=== PATIENT | female | born 1965 | race Caucasian/White ===

== ENCOUNTER 2018-09-02 14:03 | Inpatient (IN) | payer BC ==
[2018-09-02] MEDS ORDERED: Ondansetron INJ* 2 MG/ML VIAL IV ONE (14:39)
[2018-09-02] MEDS ORDERED: NS 0.9% 1000 ML*IV.FLUID IV ONE (14:39)
[2018-09-02] MEDS ORDERED: Vancomycin(*) 1,000 MG in NS 0.9% 250 ML* 250 ML IVPB ONE (14:40)
[2018-09-02] MEDS ORDERED: Cefepime 2 GM in Dextrose(*) 2 GM/50 ML BAG IV ONE (14:40)
--- OUTSIDE RECORDS SUMMARY | 2018-09-02 14:43 | XMS REPORT ---
:1965 Author Organization [facility] Address [address] [place] [address] Care Team Providers Name Role Phone Addi Fong Unavailable Unavailable PROBLEMS Type Condition ICD9-CM TLR07-LF Onset Condition SNOMED Code Code Code Dates Status Problem Benign N85.01 Active 820991999844778 endometrial hyperplasia Problem Unspecified N83.201 Active 43509788248071353 ovarian cyst, right side Problem Excessive and N92.1 Active 43387820 frequent menstruation with irregular cycle Problem Incomplete N81.2 Active 141677896 uterovaginal prolapse Problem Family history Z80.0 Active 496765557 of malignant neoplasm of digestive organs ALLERGIES No Information ENCOUNTERS Encounter Location Date Diagnosis [facility] [address] [place] [address] Aug, [address] [place], [place] [id number] [facility] [address] [place], Aug, Excessive and frequent [place] [facility] [place] [id number] menstruation with irregular cycle N92.1 ; Benign endometrial hyperplasia N85.01 ; Unspecified ovarian cyst, right side N83.201 and Hypertrophy of uterus N85.2 [facility] 103 Jul, OBGYN [place], [place] [id number] [facility] [address] [place] [address] Jul, Excessive and frequent [address] [place], menstruation with [place] [id number] irregular cycle N92.1 and Benign endometrial hyperplasia N85.01 [facility] 103 Jul, OBGYN [place] [id number] [facility] 103 Jun, OBGYN [place] [id number] [facility] [address] [facility] Jun, Excessive and frequent [address] [place], menstruation with [place] [id number] irregular cycle N92.1 ; Unspecified ovarian cyst, right side N83.201 ; Incomplete uterovaginal prolapse N81.2 ; Benign endometrial hyperplasia N85.01 and Family history of malignant neoplasm of digestive organs Z80.0 [facility] 103 Jun, Unspecified ovarian OBGYN [facility], cyst, right side N83.201 [place] [id number] ; Excessive and frequent menstruation with irregular cycle N92.1 and Abnormal findings on diagnostic imaging of other specified body structures R93.8 [facility] 103 Jun, OBGYN [place] [id number] [facility] [address] [place], Jun, Excessive and frequent [facility] [place] [id number] menstruation with irregular cycle N92.1 [facility] 103 Jun, OBGYN [place], [place] [id number] [place] [facility] [address] [place] [address] Jun, Excessive and frequent [address] [place], menstruation with [place] [id number] irregular cycle N92.1 ; Unspecified ovarian cyst, right side N83.201 ; Incomplete uterovaginal prolapse N81.2 and Family history of malignant neoplasm of digestive organs Z80.0 [facility] 103 May, OBGYN [place], [place] [id number] [facility] 103 May, Excessive and frequent OBGYN [facility], menstruation with [place] [id number] irregular cycle N92.1 ; Unspecified ovarian cyst, right side N83.201 ; Incomplete uterovaginal prolapse N81.2 and Family history of malignant neoplasm of digestive organs Z80.0 [facility] 103 May, OBGYN [facility] [place] [id number] [place] [facility] 103 May, Excessive and frequent OBGYN [facility], menstruation with [place] [id number] irregular cycle N92.1 [place] [facility] 103 May, Excessive and frequent OBGYN [facility], menstruation with [place] [id number] irregular cycle N92.1 [place] [facility] 103 May, Excessive and frequent OBGYN [facility], menstruation with [place] [id number] irregular cycle N92.1 and Unspecified ovarian cyst, right side N83.201 [place] [facility] [address] [facility] Apr, Unspecified ovarian [address] [place], cyst, right side N83.201 [place] [id number] ; Encounter for screening for malignant neoplasm of cervix Z12.4 ; Incomplete uterovaginal prolapse N81.2 ; Family history of malignant neoplasm of digestive organs Z80.0 and Excessive and frequent menstruation with irregular cycle N92.1 IMMUNIZATIONS No Known Immunizations SOCIAL HISTORY Never Assessed REASON FOR REFERRAL FUNCTIONAL STATUS PLAN OF CARE VITAL SIGNS MEDICATIONS Medication Instructions Dosage Frequency Start Date End Date Duration Status ibuprofen 800 orally q 8 hrs 1 tab(s) Aug, Active mg prn 2018 Percocet 5/325 orally every 6 1 tab(s) Aug, Active 325 mg-5 mg hours prn 2018 PROCEDURES Procedure Date Ordered Result Body Site TLH W/T/O UTERUS OVER 250 G Aug 25, 2018 REMOVAL OF OVARIAN CYST(S) Aug 25, 2018 CYSTOSCOPY Aug 25, 2018 RESULTS No Results REASON FOR VISIT TLH/BS/cysto Insurance Providers [facility] Health Member Patient Patient Patient Patient Patient Subscriber Subscriber Subscriber Group Insurance Plan Plan Plan Plan ID Relationship Address Phone Name Date of ID Name Date of No Type Insurance Insurance Insurance Coverage to Subscriber Address Phone Name Dates Excellus [address] Excellus self Ayala [id number] Blue [id number] 89 Blue [place] 7 Cross/Blue [place] Cross/Blue Shield 61590 Shield Excellus [address] Excell[employer] self Ayala [id number] Blue [id number] 89 Blue [place] 2 Cross/Blue [place] Cross[place] Shield 11423 Shield MEDICAL (GENERAL) HISTORY Type Description Date Medical History Fibroids Medical History High Chloesterol Medical History Endometriosis Surgical History Exploratory laparoscopy w/ lysis of adhesions 1992 Surgical History Shoulder surgery Surgical History hysteroscopy, D&C 07/01/18
--- OUTSIDE RECORDS SUMMARY | 2018-09-02 14:43 | XMS REPORT ---
:1965 Author Organization [facility] Address [address] [place] [address] Care Team Providers Name Role Phone Lou Reveles Unavailable Unavailable PROBLEMS Type Condition ICD9-CM [id number] Onset Condition SNOMED Code Code Code Dates Status Problem Benign N85.01 Active 049387191636485 endometrial hyperplasia Problem Unspecified N83.201 Active 52540601735275031 ovarian cyst, right side Problem Excessive and N92.1 Active 74133110 frequent menstruation with irregular cycle Problem Incomplete N81.2 Active 786992827 uterovaginal prolapse Problem Family history Z80.0 Active 457712996 of malignant neoplasm of digestive organs ALLERGIES No Information ENCOUNTERS Encounter Location Date Diagnosis [facility] O[facility] [address] [place] [address] Aug, [address] [place], [place] [id number] [facility] 103 Aug, OBGYN [place], [place] [id number] [facility] [address] [place], Aug, Excessive and frequent Medical [facility] [place] [id number] menstruation with irregular cycle N92.1 ; Benign endometrial hyperplasia N85.01 ; Unspecified ovarian cyst, right side N83.201 and Hypertrophy of uterus N85.2 [facility] 103 Jul, OBGYN [place], [place] [id number] [facility] [address] [place] [address] Jul, Excessive and frequent [address] [place], menstruation with [place] [id number] irregular cycle N92.1 and Benign endometrial hyperplasia N85.01 [facility] 103 Jul, OBGYN [place] [id number] [facility] 103 Jun, OBGYN [place] [id number] [place] [facility] [address] [place] [address] Jun, Excessive and frequent [address] [place], menstruation with [place] [id number] irregular cycle N92.1 ; Unspecified ovarian cyst, right side N83.201 ; Incomplete uterovaginal prolapse N81.2 ; Benign endometrial hyperplasia N85.01 and Family history of malignant neoplasm of digestive organs Z80.0 [facility] 103 Jun, Unspecified ovarian OBGYN [facility], cyst, right side N83.201 [place] [id number] ; Excessive and frequent menstruation with irregular cycle N92.1 and Abnormal findings on diagnostic imaging of other specified body structures R93.8 [facility] 103 Jun, OBGYN [place], [place] [id number] [facility] [address] [place], Jun, Excessive and frequent Medical [facility] [place] [id number] menstruation with irregular cycle N92.1 [facility] 103 Jun, OBGYN [place] [id number] [place] [facility] [address] [place] [address] Jun, Excessive and frequent [address] [place], menstruation with [place] [id number] irregular cycle N92.1 ; Unspecified ovarian cyst, right side N83.201 ; Incomplete uterovaginal prolapse N81.2 and Family history of malignant neoplasm of digestive organs Z80.0 [facility] 103 May, OBGYN [place], [place] [id number] [place] [facility] 103 May, Excessive and frequent OBGYN [facility], menstruation with [place] [id number] irregular cycle N92.1 ; Unspecified ovarian cyst, right side N83.201 ; Incomplete uterovaginal prolapse N81.2 and Family history of malignant neoplasm of digestive organs Z80.0 [place] [facility] 103 May, OBGYN [facility] [id number] [place] [facility] 103 May, Excessive and frequent OBGYN [facility], menstruation with [place] [id number] irregular cycle N92.1 [place] [facility] 103 May, Excessive and frequent OBGYN [facility], menstruation with [place] [id number] irregular cycle N92.1 [place] [facility] 103 May, Excessive and frequent OBGYN [facility], menstruation with [place] [id number] irregular cycle N92.1 and Unspecified ovarian cyst, right side N83.201 [place] [facility] [address] [facility] Apr, Unspecified ovarian [address] [place], cyst, right side N83.201 [place] [id number] ; Encounter for screening for malignant neoplasm of cervix Z12.4 ; Incomplete uterovaginal prolapse N81.2 ; Family history of malignant neoplasm of digestive organs Z80.0 and Excessive and frequent menstruation with irregular cycle N92.1 IMMUNIZATIONS No Known Immunizations SOCIAL HISTORY Never Assessed REASON FOR REFERRAL FUNCTIONAL STATUS PLAN OF CARE VITAL SIGNS MEDICATIONS Unknown Medications PROCEDURES No Known procedures RESULTS No Results REASON FOR VISIT message from call center. Insurance Providers [facility] Member Patient Patient Patient Patient Patient Subscriber Subscriber Subscriber Group Insurance Plan Plan Plan Plan ID Relationship Address Phone Name Date of ID Name Date of No Type Insurance Insurance Insurance Coverage to Subscriber Address Phone Name Dates Excellus [address] Excellus self Ay[place] [id number] Blue [id number] 89 Blue [place] 7 Cross[place] Cross/Blue Shield 26[address] Shield Excellus [address] [employer]us self [place] [id number] Blue [id number] 89 Blue [place] 2 Cross[place] Cross[place]Blue Shield 51215 Shield MEDICAL (GENERAL) HISTORY Type Description Date Medical History Fibroids Medical History High Chloesterol Medical History Endometriosis Surgical History Exploratory laparoscopy w/ lysis of adhesions 1992 Surgical History Shoulder surgery Surgical History hysteroscopy, D&C 07/01/18
--- OUTSIDE RECORDS SUMMARY | 2018-09-02 14:43 | XMS REPORT ---
:1965 Author Organization [facility] Address [address] [place] [address] Care Team Providers Name Role Phone Addi Fong Unavailable Unavailable PROBLEMS Type Condition ICD9-CM NKS84-JV Onset Condition SNOMED Code Code Code Dates Status Problem Benign N85.01 Active 523518233468761 endometrial hyperplasia Problem Unspecified N83.201 Active 85113396711500386 ovarian cyst, right side Problem Excessive and N92.1 Active 43553842 frequent menstruation with irregular cycle Problem Incomplete N81.2 Active 992679628 uterovaginal prolapse Problem Family history Z80.0 Active 416529654 of malignant neoplasm of digestive organs ALLERGIES No Information ENCOUNTERS Encounter Location Date Diagnosis [address] Aug, [address] [place], [place] [id number] [facility] 103 Aug, OBGYN [place] [id number] [facility] 103 Aug, OBGYN [place], [place] [id number] [facility] [address] [place], Aug, Excessive and frequent [facility] [place] [id number] menstruation with irregular cycle N92.1 ; Benign endometrial hyperplasia N85.01 ; Unspecified ovarian cyst, right side N83.201 and Hypertrophy of uterus N85.2 [facility] 103 Jul, OBGYN [place], [place] [id number] [facility] [address] [place] [address] Jul, Excessive and frequent [address] [place], menstruation with [place] [id number] irregular cycle N92.1 and Benign endometrial hyperplasia N85.01 [facility] 103 Jul, OBGYN [place], [place] [id number] [facility] 103 Jun, OBGYN [place], [place] [id number] [facility] [address] [place] [address] Jun, Excessive and frequent [address] [place], menstruation with [place] [id number] irregular cycle N92.1 ; Unspecified ovarian cyst, right side N83.201 ; Incomplete uterovaginal prolapse N81.2 ; Benign endometrial hyperplasia N85.01 and Family history of malignant neoplasm of digestive organs Z80.0 [facility] 103 Jun, Unspecified ovarian OBGYN [facility], cyst, right side N83.201 [place] [id number] ; Excessive and frequent menstruation with irregular cycle N92.1 and Abnormal findings on diagnostic imaging of other specified body structures R93.8 [facility] 103 Jun, OBGYN [place], [place] [id number] [facility] [address] [place], Jun, Excessive and frequent Medical [facility] [place] [id number] menstruation with irregular cycle N92.1 [facility] 103 Jun, OBGYN [place], [place] [id number] [facility] [address] [place] [address] Jun, Excessive and frequent [address] [place], menstruation with [place] [id number] irregular cycle N92.1 ; Unspecified ovarian cyst, right side N83.201 ; Incomplete uterovaginal prolapse N81.2 and Family history of malignant neoplasm of digestive organs Z80.0 [facility] 103 May, OBGYN [place], [place] [id number] [facility] 103 May, Excessive and frequent OBGYN [facility], menstruation with [place] [id number] irregular cycle N92.1 ; Unspecified ovarian cyst, right side N83.201 ; Incomplete uterovaginal prolapse N81.2 and Family history of malignant neoplasm of digestive organs Z80.0 [place] [facility] 103 May, OBGYN [facility] [id number] [place] [facility] 103 May, Excessive and frequent OBGYN [facility], menstruation with [place] [id number] irregular cycle N92.1 [place] [facility] 103 May, Excessive and frequent OBGYN [facility], menstruation with [place] [id number] irregular cycle N92.1 [place] [facility] 103 May, Excessive and frequent OBGYN [facility], menstruation with [place] [id number] irregular cycle N92.1 and Unspecified ovarian cyst, right side N83.201 [place] [facility] [address] [place] [address] Apr, Unspecified ovarian [address] [place], cyst, right side N83.201 [place] [id number] ; Encounter for screening for malignant neoplasm [...] procedures RESULTS No Results REASON FOR VISIT PT concerns Insurance Providers [facility] Health Member Patient Patient Patient Patient Patient Subscriber Subscriber Subscriber Group Insurance Plan Plan Plan Plan ID Relationship Address Phone Name Date of ID Name Date of No Type Insurance Insurance Insurance Coverage to Subscriber Address Phone Name Dates Excell[employer] [address] Excell[employer] self Ayala 1965 [id number] Blue [id number] 89 Blue [place] 7 Cross/Blue [place] Cross/Blue Shield 35745 Shield Excellus [address] Excellus self Ayala [id number] Blue [id number] 89 Blue [place] 2 Cross[place]Blue [place]/Blue Shield 61713 Shield MEDICAL (GENERAL) HISTORY Type Description Date Medical History Fibroids Medical History High Chloesterol Medical History Endometriosis Surgical History Exploratory laparoscopy w/ lysis of adhesions 1992 Surgical History Shoulder surgery Surgical History hysteroscopy, D&C 07/01/18
--- OUTSIDE RECORDS SUMMARY | 2018-09-02 14:44 | XMS REPORT ---
:1965 Author Organization [facility] Address [address] [place] [address] Care Team Providers Name Role Phone Lou Reveles Unavailable Unavailable PROBLEMS Type Condition ICD9-CM LQA03-IQ Onset Condition SNOMED Code Code Code Dates Status Problem Benign N85.01 Active 154685167846216 endometrial hyperplasia Problem Unspecified N83.201 Active 88778213052227407 ovarian cyst, right side Problem Excessive and N92.1 Active 81118563 frequent menstruation with irregular cycle Problem Incomplete N81.2 Active 128930818 uterovaginal prolapse Problem Family history Z80.0 Active 216253656 of malignant neoplasm of digestive organs ALLERGIES Substance Reaction Event Type Date Status penicillin Rash, Edema Drug Allergy Jul, Active cephalexin Vomiting Drug Allergy Jul, Active tetracycline Rash Drug Allergy Jul, Active ENCOUNTERS Encounter Location Date Diagnosis [facility] O[facility] [address] [place] [address] Aug, [address] [place], [place] [id number] [facility] [address] [place], Aug, [facility] [id number] [facility] 103 Jul, OBGYN [place] [id number] [facility] [address] [place] [address] Jul, [address] [place], menstruation with [place] [id number] irregular cycle N92.1 and Benign endometrial hyperplasia N85.01 [facility] 103 Jul, OBGYN [place] [id number] [facility] 103 Jun, OBGYN [place], [place] [id number] [place] [facility] [address] [facility] Jun, Excessive and frequent [address] [place], menstruation with [place] [id number] irregular cycle N92.1 ; Unspecified ovarian cyst, right side N83.201 ; Incomplete uterovaginal prolapse N81.2 ; Benign endometrial hyperplasia N85.01 and Family history of malignant neoplasm of digestive organs Z80.0 [facility] 103 Jun, Unspecified ovarian OBGYN [facility], cyst, right side N83.201 [place] [id number] ; Excessive and frequent menstruation with irregular cycle N92.1 and Abnormal findings on diagnostic imaging of other specified body structures R93.8 [facility] 103 Jun, OBGYN [place] [id number] [facility] [address] [place], Jun, Excessive and frequent Medical [place] [id number] menstruation with irregular cycle N92.1 [facility] 103 Jun, OBGYN [place], [place] [id number] [place] [facility] [address] [facility] Jun, Excessive and frequent [address] [place], menstruation with [place] [id number] irregular cycle N92.1 ; Unspecified ovarian cyst, right side N83.201 ; Incomplete uterovaginal prolapse N81.2 and Family history of malignant neoplasm of digestive organs Z80.0 [facility] 103 May, OBGYN [place], [place] [id number] [facility] 103 May, Excessive and frequent OBGYN [facility], menstruation with [place] [id number] irregular cycle N92.1 ; Unspecified ovarian cyst, right side N83.201 ; Incomplete uterovaginal prolapse N81.2 and Family history of malignant neoplasm of digestive organs Z80.0 [facility] 103 May, OBGYN [place] [id number] [place] [facility] 103 May, Excessive and frequent OBGYN [facility], menstruation with [place] [id number] irregular cycle N92.1 [place] [facility] 103 May, Excessive and frequent OBGYN [facility], menstruation with [place] [id number] irregular cycle N92.1 [place] [facility] 103 May, Excessive and frequent OBGYN [facility], menstruation with [place] [id number] irregular cycle N92.1 and Unspecified ovarian cyst, right side N83.201 [place] [facility] [address] [facility] Apr, Unspecified ovarian [address] [place], cyst, right side N83.201 [place] [id number] ; Encounter for screening for malignant neoplasm of cervix Z12.4 ; Incomplete uterovaginal prolapse N81.2 ; Family history of malignant neoplasm of digestive organs Z80.0 and Excessive and frequent menstruation with irregular cycle N92.1 IMMUNIZATIONS No Known Immunizations SOCIAL HISTORY Never Assessed REASON FOR REFERRAL FUNCTIONAL STATUS PLAN OF CARE Activity Details Follow Up As scheduled pending medical and cardiac clearance Reason: Pending Test URINE CULTURE Pending Test URINALYSIS WITH MICROSCOPIC VITAL SIGNS Height 65 in 2018-08-19 Weight 172 lbs 2018-08-19 BMI 28.62 kg/m2 2018-08-19 Blood pressure systolic 118 mm Hg 2018-08-19 Blood pressure diastolic 80 mm Hg 2018-08-19 MEDICATIONS Medication Instructions Dosage Frequency Start End Date Duration Status Date megestrol 40 mg orally bid 1 12h 30 day(s) Active Vitamin B-12 orally once a Active 1000 mcg week atorvastatin 10 orally once a 1 tab(s) 24h Active mg day PROCEDURES No Known procedures RESULTS No Results REASON FOR VISIT presurgical counseling, Clearance needed by PCP and cardiology, ECHO tomorrow and stress test on Friday Insurance Providers [facility] Health Member Patient Patient Patient Patient Patient Subscriber Subscriber Subscriber Group Insurance Plan Plan Plan Plan ID Relationship Address Phone Name Date of ID Name Date of No Type Insurance Insurance Insurance Coverage to Subscriber Address Phone Name Dates Brandin [phone] Brandin self [facility] [id number] Blue [id number] 89 Blue [place] 2 Cross[place] Cross/Blue Shield [id number] Shield Excell[employer] [phone] Excell[employer] self [place] [id number] Blue [id number] 89 Blue [place] 7 Cross/Blue [place] Cross/Blue Shield [id number] Shield MEDICAL (GENERAL) HISTORY Type Description Date Medical History Fibroids Medical History High Chloesterol Medical History Endometriosis Surgical History Exploratory laparoscopy w/ lysis of adhesions 1992 Surgical History Shoulder surgery Surgical History hysteroscopy, D&C 07/01/18
--- OUTSIDE RECORDS SUMMARY | 2018-09-02 14:44 | XMS REPORT ---
:1965 Author Organization [facility] Address [address] [place] [address] Care Team Providers Name Role Phone Lou Reveles Unavailable Unavailable PROBLEMS Type Condition ICD9-CM [id number] Onset Condition SNOMED Code Code Code Dates Status Problem Benign N85.01 Active 931055410090260 endometrial hyperplasia Problem Unspecified N83.201 Active 41885319202758418 ovarian cyst, right side Problem Excessive and N92.1 Active 20741273 frequent menstruation with irregular cycle Problem Incomplete N81.2 Active 778570931 uterovaginal prolapse Problem Family history Z80.0 Active [id number] of malignant neoplasm of digestive organs ALLERGIES No Information ENCOUNTERS Encounter Location Date Diagnosis [facility] [address] [place] [address] Aug, [address] [place], [place] [id number] [facility] [address] [place], Aug, [facility] [id number] [facility] [address] Jul, OBGYN [place], [place] [id number] [facility] [address] [facility] Jul, Excessive and frequent [address] [place], menstruation with [place] [id number] irregular cycle N92.1 and Benign endometrial hyperplasia N85.01 [facility] [address] Jul, OBGYN [place], [place] [id number] [facility] [address] Jun, OBGYN [place], [place] [id number] [place] [facility] [address] [facility] Jun, Excessive and frequent [address] [place], menstruation [place] [id number] irregular cycle N92.1 ; Unspecified ovarian cyst, right side N83.201 ; Incomplete uterovaginal prolapse N81.2 ; Benign endometrial hyperplasia N85.01 and Family history of malignant neoplasm of digestive organs Z80.0 [facility] [address] Jun, Unspecified ovarian OBGYN [facility], cyst, right side N83.201 [place] [id number] ; Excessive and frequent menstruation with irregular cycle N92.1 and Abnormal findings on diagnostic imaging of other specified body structures R93.8 [facility] [address] Jun, OBGYN [place], [place] [id number] [facility] [address] [place], Jun, Excessive and frequent [facility] [place] [id number] menstruation with irregular cycle N92.1 [facility] 103 Jun, OBGYN [place] [id number] [place] [facility] [address] [facility] Jun, Excessive and frequent [address] [place], menstruation with [place] [id number] irregular cycle N92.1 ; Unspecified ovarian cyst, right side N83.201 ; Incomplete uterovaginal prolapse N81.2 and Family history of malignant neoplasm of digestive organs Z80.0 [facility] 103 May, OBGYN [place], [place] [id number] [facility] 103 May, Excessive and frequent OBGYN [facility], menstruation with [place] [id number] irregular cycle N92.1 ; Unspecified ovarian cyst, right side N83.201 ; Incomplete uterovaginal prolapse N81.2 and Family history of malignant neoplasm of digestive organs Z80.0 [facility] 103 May, OBGYN [place] [id number] [facility] 103 May, Excessive and frequent OBGYN [facility], menstruation with [place] [id number] irregular cycle N92.1 [facility] 103 May, Excessive and frequent OBGYN [facility], menstruation with [place] [id number] irregular cycle N92.1 [place] [facility] 103 May, Excessive and frequent OBGYN [facility], menstruation with [place] [id number] irregular cycle N92.1 and Unspecified ovarian cyst, right side N83.201 [place] [facility] [address] [facility] Apr, Unspecified ovarian [address] [place], cyst, right side N83.201 [place] [id number] ; Encounter for screening for malignant neoplasm [...] procedures RESULTS No Results REASON FOR VISIT PCP clearance Insurance Providers [facility] Member Patient Patient Patient Patient Patient Subscriber Subscriber Subscriber Group Insurance Plan Plan Plan Plan ID Relationship Address Phone Name Date of ID Name Date of No Type Insurance Insurance Insurance Coverage to Subscriber Address Phone Name Dates [employer] [address] [employer] self Ayala [id number] Blue [id number] 89 [address] [place] 2 [place] Cross/Blue Shield [id number] Shield [employer] [address] [employer] self [place] [id number] Blue [id number] 89 [place] 7 [place] [id number] Shield MEDICAL (GENERAL) HISTORY Type Description Date Medical History Fibroids Medical History High Chloesterol Medical History Endometriosis Surgical History Exploratory laparoscopy w/ lysis of adhesions 1992 Surgical History Shoulder surgery Surgical History hysteroscopy, D&C 07/01/18
--- OUTSIDE RECORDS SUMMARY | 2018-09-02 14:44 | XMS REPORT ---
:1965 Author Organization [facility] Address [address] [place] [address] Care Team Providers Name Role Phone Addi Fong Unavailable Unavailable PROBLEMS Type Condition ICD9-CM DFT22-QF Onset Condition SNOMED Code Code Code Dates Status Problem Benign N85.01 Active 492308177404807 endometrial hyperplasia Problem Unspecified N83.201 Active 51828216058723352 ovarian cyst, right side Problem Excessive and N92.1 Active 16957668 frequent menstruation with irregular cycle Problem Incomplete N81.2 Active 719238938 uterovaginal prolapse Problem Family history Z80.0 Active 509509634 of malignant neoplasm of digestive organs ALLERGIES No Information ENCOUNTERS Encounter Location Date Diagnosis [facility] [address] [facility] Aug, [address] [place], [place] [id number] [facility] [address] [place], Aug, [facility] [id number] [facility] [address] [facility] Jul, [address] [place], [place] [id number] [facility] 103 Jul, OBGYN [place] [id number] [facility] 103 Jun, OBGYN [place] [id number] [facility] [address] [facility] Jun, Excessive and frequent [address] [place], menstruation with [place] [id number] irregular cycle N92.1 ; Unspecified ovarian cyst, right side N83.201 ; Incomplete uterovaginal prolapse N81.2 ; Benign endometrial hyperplasia N85.01 and Family history of malignant neoplasm of digestive organs Z80.0 [place] [facility] [address] Jun, Unspecified ovarian OBGYN [facility], cyst, right side N83.201 [place] [id number] ; Excessive and frequent menstruation with irregular cycle N92.1 and Abnormal findings on diagnostic imaging of other specified body structures R93.[address] [facility] [address] Jun, OBGYN [place], [place] [id number] [facility] [address] [place], Jun, Excessive and frequent [facility] [place] [id number] menstruation with irregular cycle N92.[address] [facility] [address] Jun, OBGYN [place] [id number] [place] [facility] [address] [facility] Jun, Excessive and frequent [address] [place], menstruation with [place] [id number] irregular cycle N92.1 ; Unspecified ovarian cyst, right side N83.201 ; Incomplete uterovaginal prolapse N81.2 and Family history of malignant neoplasm of digestive organs Z80.0 [facility] [address] May, OBGYN [place], [place] [id number] [facility] [address] May, Excessive and frequent OBGYN [facility], menstruation with [place] [id number] irregular cycle N92.1 ; Unspecified ovarian cyst, right side N83.201 ; Incomplete uterovaginal prolapse N81.2 and Family history of malignant neoplasm of digestive organs Z80.0 [place] [facility] 103 May, OBGYN [place], [place] [id number] [place] [facility] 103 May, Excessive and frequent OBGYN [facility], menstruation with [place] [id number] irregular cycle N92.1 [place] [facility] 103 May, Excessive and frequent OBGYN [facility], menstruation [place] [id number] irregular cycle N92.1 [facility] 103 May, Excessive and frequent OBGYN [facility], menstruation with [place] [id number] irregular cycle N92.1 and Unspecified ovarian cyst, right side N83.201 [place] [facility] [address] [facility] Apr, Unspecified ovarian [address] [place], cyst, right side N83.201 [place] [id number] ; Encounter for screening for malignant neoplasm [...] procedures RESULTS No Results REASON FOR VISIT pt called with update - LMTCB 08/13/18 Insurance Providers [facility] Member Patient Patient Patient Patient Patient Subscriber Subscriber Subscriber Group Insurance Plan Plan Plan Plan ID Relationship Address Phone Name Date of ID Name Date of No Type Insurance Insurance Insurance Coverage to Subscriber Address Phone Name Dates [employer] [phone] [employer] self Ayala 1965 [id number] Blue [id number] 89 [place] 7 [place]/Blue Shield [id number] Shield [employer] [phone] [employer] self Ay[place] [id number] Blue [id number] 89 [place] 2 [place] Shield [id number] Shield MEDICAL (GENERAL) HISTORY Type Description Date Medical History Fibroids Medical History High Chloesterol Medical History Endometriosis Surgical History Exploratory laparoscopy w/ lysis of adhesions 1992 Surgical History Shoulder surgery Surgical History hysteroscopy, D&C 07/01/18
--- OUTSIDE RECORDS SUMMARY | 2018-09-02 14:44 | XMS REPORT | Continuity of Care Document ---
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 [address] Group Name: DELBERT Loo [address] PayID: [id number] Expires: 2016 Policy Number: [id number] Laurenus BUNNY Klein Group Number: [id number] [address] Group Name: BC/BS of [place]ERT Shine [address] PayID: [id number] Effective: 2017 Policy Number: [id number] [employer](Open Choice) Veronika Klein Expires: 2018 PayID: [id number] [address] ANTWAN Santiago [address] Expires: 2017 Policy Number: [id number] Lauren BUNNY Klein Group Number: [id number] [address] Group Name: DELBERT Rodas [address]2017 PayID: [id number] Effective: 2017 Policy Number: [id number] Brandin HOLLIS Veronika Klein Group Number: 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 Tobacco Use Start: Unknown Former Cigarette Smoker smoked for 6-7 years End: Unknown when she was younger ETOH Use Rarely consumes alcohol Recreational Drug Use Denies Drug Use Tobacco Use Start: Unknown Patient is a former End: Unknown smoker Enjoy Exercising Enjoys exercising she is currently limited by her shoulder pain, tries to walk some but has pain Allergies, Adverse Reactions, Alerts Date Description Reaction Status Severity Comments 09/27/2008 PCN Active 09/27/2008 Tetracyclin Active rash 01/09/2018 Paroxetine Active throat closing Medications Medication Date Status Form Strength Qnty SIG Indications Ordering Provider Hydrocortisone 08/03/ Active Cream 2.5% 20gm apply 1 R21 [facility] 2017 application Shortle, topically to [employer]ITTER affected area 2 times per day Atorvastatin 10/02/ Active Tablets 10mg 90tab take one E78.2 Shawnti Calcium 2015 s tablet daily R. Rai, at bedtime. [facility] Alprazolam 09/20/ Active Tablets 0.25mg 10ten 1 by mouth F41.9 Shawnti 2014 30 minutes R. Rai, prior to air [facility] THERAP[facility] travel if needed Vitamin B12 / Active Tablets 1000mcg 1 by mouth Unknown 0000 ER every day- sublingual- for vitamin b12 deficiency Meloxicam / Active Tablets take 1 Unknown 0000 tablet by mouth twice daily with food for back pain Progesterone / Active Cream Unknown 0000 Permethrin 06/19/ Hx Cream 5% 60gm apply cream B86 Clarence 2017 [facility] MD sharon 2017 surface. leave on for 8-14 hours then wash off. Permethrin 10/09/ Hx Cream 5% 60gm apply to B86 Gaurangjenniei 2017 - body from Naomi Atwood, 02/19/ the neck [facility] 2017 down, leave on for 8 hours then rinse off Hydroxyzine HCL 10/09/ Hx Tablets 25mg 30tab 1 by mouth B86 True 2016 - s four times a Naomi Atwood, 02/19/ day as [facility] 2018 needed for itching Fluoxetine HCL 09/17/ Hx Capsules 10mg 30cap 1 by mouth F43.0 True 2015 - s every Naomi Atwood, 09/15/ morning [facility] 2016 Tizanidine HCL 05/29/ Hx Tablets 2mg 30tab take 1 847.2 Danai 2014 - s tablet by Naomi Atwood, 09/17/ mouth three [facility] 2016 times daily as needed for muscle spasm Tramadol HCL 05/29/ Hx Tablets 50mg 40tab 1 by mouth 847.2 Delfinnti 2014 - s q4-6hr as Naomi Atwood, 09/17/ needed [facility] 2015 severe pain No Active 09/20/ Hx Unknown Medications 2013 - 2013 No Active 07/29/ Hx Unknown Medications 2012 - 2012 Nupercainal Hx Ointment 1% True 2012 - Naomi Atwood, 07/29/ [facility] 2012 Lidocaine/Priloc Hx Cream 2.5-2.5% 25gm apply a pea True gupta 2013 - sized amount Naomi Atwood, 09/20/ to the [facility] 2013 affected area tid prn Benzonatate 11/26/ Hx Capsules 100mg 30cap 1 po tid prn 465.9 True 2012 - s cough Naomi Atwood, [facility] 2012 Benadryl Allergy 08/20/ Hx Tablets 25mg QHS prn True 2011 - Naomi Atwood, [facility] 2013 Omeprazole 08/20/ Hx Capsules 20mg 1 po qd-ac True 2011 - prn for Naomi Atwood, 07/29/ stomach acid [facility] 2012 Meclizine HCL 12/28/ Hx Tablets 12.5mg 30tab 1-2 tabs up 386.11 True 2010 - s to tid for Naomi Atwood, 08/20/ vertigo [facility] 2011 Immunizations CPT Code Status Date Vaccine Lot # [id number] Given 08/21/2018 Influenza Virus Vaccine, Quadrivalent, 3 Yr > [id number] Quad, Preserv Free 28868 Given 09/15/2017 Influenza Virus Vaccine, Quadrivalent, 3 Yr > [id number] Quad, Preserv Free 35247 Given 09/17/2016 Influenza Virus Vaccine, Quadrivalent, 3 Yr > [id number] Quad, Preserv Free 00154 Given 10/02/2015 Influenza Virus Vaccine, Quadrivalent, 3 Yr > [id number] Quad, Preserv Free 92465 Given 09/20/2014 Influenza Virus Vaccine, Quadrivalent, 3 Yr > [id number] Quad, Preserv Free 17788 Given 07/29/2013 Td Age 7 to adult (Tenivac, Decavac, Mass [id number] Biologics) 96555 Given 08/20/2012 Influenza Vaccine-Preservative Free 3 Yrs And [id number] Above 12376 Given 09/27/2008 Influenza Virus Vaccine, 3 Yrs And Above [id number] Vital Signs Date Vital Result Comment 08/21/2018 3:51pm Weight 174.00 lb Weight 78.926 kg BP Systolic 110 mmHg BP Diastolic 68 mmHg Heart Rate 102 /min Body Temperature 98.9 F Respiratory Rate 16 /min 08/03/2018 9:21am Weight 175.00 lb Weight 79.380 kg BP Systolic 111 mmHg BP Diastolic 68 mmHg Heart Rate 80 /min Body Temperature 99.4 F Respiratory Rate 12 /min Height 63.5 inches 5'3.50" BMI (Body Mass Index) 30.5 kg/m2 06/19/2018 11:19am Weight 178.00 lb Weight 80.741 kg BP Systolic 122 mmHg BP Diastolic 82 mmHg Heart Rate 84 /min Body Temperature 98.4 F Respiratory Rate 16 /min O2 % BldC Oximetry 97 % 04/28/2018 8:07am Weight 176.00 lb Weight 79.834 kg BP Systolic 122 mmHg BP Diastolic 78 mmHg Heart Rate 94 /min Body Temperature 98.3 F Respiratory Rate 14 /min 03/16/2018 4:32pm Weight 179.00 lb Weight 81.194 kg BP Systolic 110 mmHg BP Diastolic 80 mmHg Heart Rate 72 /min Body Temperature 98.1 F Respiratory Rate 16 /min O2 % BldC Oximetry 98 % 02/19/2018 4:19pm Weight 179.00 lb Weight 81.194 kg BP Systolic 116 mmHg BP Diastolic 66 mmHg Heart Rate 80 /min Respiratory Rate 16 /min O2 % BldC Oximetry 98 % 10/09/2017 9:57am BP Systolic 96 mmHg BP Diastolic 66 mmHg Heart Rate 81 /min Body Temperature 97.8 F Respiratory Rate 16 /min O2 % BldC Oximetry 98 % 09/15/2017 8:59am Weight 172.00 lb Weight 78.019 kg BP Systolic 110 mmHg BP Diastolic 72 mmHg Heart Rate 68 /min Body Temperature 96.7 F 09/17/2016 8:51am Weight 164.00 lb Weight 74.390 kg BP Systolic 108 mmHg BP Diastolic 72 mmHg Heart Rate 66 /min Body Temperature 98.6 F Respiratory Rate 66 /min Height 63.25 inches 5'3.25" BMI (Body Mass Index) 28.8 kg/m2 Last Menstrual Period [id number] 10/02/2015 11:21am Weight 162.00 lb Weight 73.483 kg BP Systolic 110 mmHg BP Diastolic 62 mmHg Heart Rate 80 /min Height 64 inches 5'4" BMI (Body Mass Index) 27.8 kg/m2 09/09/2015 9:56am Weight 158.00 lb Weight 71.669 kg BP Systolic 108 mmHg BP Diastolic 64 mmHg Heart Rate 97 /min Body Temperature 98.3 F O2 % BldC Oximetry 98 % 05/29/2015 10:31am Weight 158.00 lb Weight 71.669 kg BP Systolic 110 mmHg BP Diastolic 64 mmHg Heart Rate 72 /min 09/20/2014 8:43am Weight 157.00 lb Weight 71.215 kg BP Systolic 106 mmHg BP Diastolic 64 mmHg Heart Rate 88 /min Height 64 inches 5'4" BMI (Body Mass Index) 26.9 kg/m2 Last Menstrual Period [id number] 07/29/2013 8:52am Weight 156.00 lb Weight 70.762 kg BP Systolic 90 mmHg BP Diastolic 68 mmHg Heart Rate 72 /min Height 63 inches 5'3" BMI (Body Mass Index) 27.6 kg/m2 Last Menstrual Period [id number] 05/21/2013 11:53am Weight 155.00 lb Weight 70.308 kg BP Systolic 92 mmHg BP Diastolic 64 mmHg Heart Rate 88 /min Body Temperature 98.8 F 11/26/2012 11:10am Weight 148.00 lb Weight 67.133 kg BP Systolic 102 mmHg BP Diastolic 64 mmHg Heart Rate 88 /min Body Temperature 97.7 F Last Menstrual Period 0 O2 % BldC Oximetry 98 % 09/08/2012 2:29pm Weight 159.00 lb Weight 72.122 kg BP Systolic 102 mmHg BP Diastolic 62 mmHg Heart Rate 72 /min 08/20/2012 9:10am Weight 149.00 lb Weight 67.586 kg BP Systolic 110 mmHg BP Diastolic 60 mmHg Heart Rate 92 /min Height 64 inches 5'4" BMI (Body Mass Index) 25.6 kg/m2 Last Menstrual Period [id number] 12/28/2010 8:03am Weight 155.00 lb Weight 70.308 kg BP Systolic 100 mmHg BP Diastolic 64 mmHg Heart Rate 76 /min Body Temperature 98.8 F Height 64.5 inches 5'4.50" BMI (Body Mass Index) 26.2 kg/m2 Last Menstrual Period [id number] 09/27/2008 7:49am Weight 145.00 lb Weight 65.772 kg BP Systolic 110 mmHg BP Diastolic 70 mmHg Heart Rate 92 /min Height 63.75 inches 5'3.75" BMI (Body Mass Index) 25.1 kg/m2 Last Menstrual Period [id number] Results Test Date Facility Test Result H/L Range Note CBC Auto Diff 08/03/2018 [facility] White Blood 8.4 10^3/uL 3.5-10.8 [phone] Count Red Blood Count 4.30 10^6/uL 4.00-5.40 Hemoglobin 11.7 g/dL Low 12.0-16.0 Hematocrit 36 % 35-47 Mean Corpuscular Volume 84 fL 80-97 Mean Corpuscular Hemoglobin 27 pg 27-31 Mean Corpuscular HGB Conc 33 g/dL 31-36 Red Cell Distribution Width 14 % 10.5-15 Platelet Count 304 10^3/uL 150-450 Mean Platelet Volume 8.2 um3 7.4-10.4 Abs Neutrophils 6.0 10^3/uL 1.5-7.7 Abs Lymphocytes 1.8 10^3/uL 1.0-4.8 Abs Monocytes 0.5 10^3/uL 0-0.8 Abs Eosinophils 0.1 10^3/uL 0-0.6 Abs Basophils 0 10^3/uL 0-0.2 Abs Nucleated RBC 0 10^3/uL Granulocyte % 70.6 % 38-83 Lymphocyte % 21.9 % Low 25-47 Monocyte % 6.4 % 0-7 Eosinophil % 0.8 % 0-6 Basophil % 0.3 % 0-2 Nucleated Red Blood Cells % 0 Comp Metabolic Panel 08/03/2018 [facility] Sodium 140 mmol/L 135-145 [phone] Potassium 4.4 mmol/L 3.5-5.0 Chloride 108 mmol/L 101-111 Co2 Carbon Dioxide 26 mmol/L 22-32 Anion Gap 6 mmol/L 2-11 Glucose 93 mg/dL 70-100 Blood Urea Nitrogen 15 mg/dL 6-24 Creatinine 0.69 mg/dL 0.51-0.95 BUN/Creatinine Ratio 21.7 High 8-20 Calcium 9.6 mg/dL 8.6-10.3 Total Protein 7.1 g/dL 6.4-8.9 Albumin 4.5 g/dL 3.2-5.2 Globulin 2.6 g/dL 2-4 Albumin/Globulin Ratio 1.7 1-3 Total Bilirubin 0.50 mg/dL 0.2-1.0 Alkaline Phosphatase 65 U/L 34-104 Alt 16 U/L 7-52 Ast 16 U/L 13-39 Egfr Non- 89.0 >60 Egfr 107.7 >60 1 CBC Auto Diff 04/28/2018 [facility] White Blood 6.7 10^3/uL 3.5-10.8 [phone] Count Red Blood Count 4.34 10^6/uL 4.0-5.4 Hemoglobin 12.3 g/dL 12.0-16.0 Hematocrit 38 % 35-47 Mean Corpuscular Volume 87 fL 80-97 Mean Corpuscular Hemoglobin 28 pg 27-31 Mean Corpuscular HGB Conc 33 g/dL 31-36 Red Cell Distribution Width 15 % 10.5-15 Platelet Count 288 10^3/uL 150-450 Mean Platelet Volume 8.3 um3 7.4-10.4 Abs Neutrophils 4.5 10^3/uL 1.5-7.7 Abs Lymphocytes 1.7 10^3/uL 1.0-4.8 Abs Monocytes 0.4 10^3/uL 0-0.8 Abs Eosinophils 0.1 10^3/uL 0-0.6 Abs Basophils 0 10^3/uL 0-0.2 Abs Nucleated RBC 0 10^3/uL Granulocyte % 67.4 % 38-83 Lymphocyte % 25.2 % 25-47 Monocyte % 6.0 % 0-7 Eosinophil % 1.0 % 0-6 Basophil % 0.4 % 0-2 Nucleated Red Blood Cells % 0.1 Comp Metabolic Panel 04/28/2018 [facility] Sodium 141 mmol/L 139-145 [phone] Potassium 4.4 mmol/L 3.5-5.0 Chloride 105 mmol/L 101-111 Co2 Carbon Dioxide 30 mmol/L 22-32 Anion Gap 6 mmol/L 2-11 Glucose 95 mg/dL 70-100 Blood Urea Nitrogen 12 mg/dL 6-24 Creatinine 0.70 mg/dL 0.51-0.95 BUN/Creatinine Ratio 17.1 8-20 Calcium 9.0 mg/dL 8.6-10.3 Total Protein 6.7 g/dL 6.4-8.9 Albumin 4.3 g/dL 3.2-5.2 Globulin 2.4 g/dL 2-4 Albumin/Globulin Ratio 1.8 1-3 Total Bilirubin 0.40 mg/dL 0.2-1.0 Alkaline Phosphatase 74 U/L 34-104 Alt 18 U/L 7-52 Ast 18 U/L 13-39 Egfr Non- 87.9 >60 Egfr 113.0 >60 2 Laboratory test 04/28/2018 [facility] HCG < 0.60 mIU/mL 3 finding [phone] TSH (Thyroid Stim Horm) 1.56 mcIU/mL 0.34-5.60 4 Prolactin 6.0 ng/mL 1.0-25.0 5 FSH (Follicle Stim Hormone) 21.2 mIU/mL 6 LH (Lutenizing Hormone) 5.3 mcIU/mL 7 Iron & Iron Binding 04/28/2018 [facility] Iron 61 g /dL 50-212 Capacity [phone] Unsaturated Iron Binding 485 g/dL Total Iron Binding Capacity 546 g/dL High 250-450 Transferrin 390 mg/dL High 203-362 % Iron Saturation 11 % Low 15-55 Laboratory test 04/28/2018 [facility] Ferritin 11.5 ng/mL 11-307 8 finding [phone] Order 09/15/2017 In Office EKG <pending> Comp Metabolic 09/15/2017 [facility] Sodium 138 mmol/ L 133-145 9 Panel [phone] Potassium 3.9 mmol/L 3.5-5.0 Chloride 107 mmol/L 101-111 Co2 Carbon Dioxide 27 mmol/L 22-32 Anion Gap 4 mmol/L 2-11 Glucose 97 mg/dL 70-100 Blood Urea Nitrogen 10 mg/dL 6-24 Creatinine 0.67 mg/dL 0.51-0.95 BUN/Creatinine Ratio 14.9 8-20 Calcium 8.7 mg/dL 8.6-10.3 Total Protein 6.4 g/dL 6.4-8.9 Albumin 4.0 g/dL 3.2-5.2 Globulin 2.4 g/dL 2-4 Albumin/Globulin Ratio 1.7 1-3 Total Bilirubin 0.50 mg/dL 0.2-1.0 Alkaline Phosphatase 54 U/L 34-104 Alt 12 U/L 7-52 Ast 15 U/L 13-39 Egfr Non- 92.4 >60 Egfr 118.9 >60 10 CBC Auto Diff 09/15/2017 [facility] White Blood 6.9 10^3/uL 3.5-10.8 [phone] Count Red Blood Count 4.24 10^6/uL 4.0-5.4 Hemoglobin 11.8 g/dL Low 12.0-16.0 Hematocrit 36 % 35-47 Mean Corpuscular Volume 86 fL 80-97 Mean Corpuscular Hemoglobin 28 pg 27-31 Mean Corpuscular HGB Conc 33 g/dL 31-36 Red Cell Distribution Width 14 % 10.5-15 Platelet Count 278 10^3/uL 150-450 Mean Platelet Volume 8 um3 7.4-10.4 Abs Neutrophils 4.6 10^3/uL 1.5-7.7 Abs Lymphocytes 1.8 10^3/uL 1.0-4.8 Abs Monocytes 0.4 10^3/uL 0-0.8 Abs Eosinophils 0.1 10^3/uL 0-0.6 Abs Basophils 0 10^3/uL 0-0.2 Abs Nucleated RBC 0.01 10^3/uL Granulocyte % 66.1 % 38-83 Lymphocyte % 25.8 % 25-47 Monocyte % 6.2 % 1-9 Eosinophil % 1.5 % 0-6 Basophil % 0.4 % 0-2 Nucleated Red Blood Cells % 0.1 Laboratory 09/15/2017 [facility] Hepatitis C Nonreactive Nonreactive 11 test finding [phone] Antibody Lipid Profile 09/15/2017 [facility] Triglycerides 89 mg/dL 12 (Trig/Chol/HD [phone] L) Cholesterol 170 mg/dL 13 HDL Cholesterol 47.4 mg/dL 14 LDL Cholesterol 105 mg/dL 15 Laboratory test 09/15/2017 [facility] TSH (Thyroid 0.90 0.34-5.60 16 finding [phone] Stimulating mcIU/mL Horm) Laboratory test 01/05/2016 [facility] Surgical SEE RESULT 17 finding [phone] Pathology BELOW Statin 12/21/2015 [facility] Ast (Sgot) 17 U/L 13- 39 [phone] Alt (SGPT) 17 U/L 7-52 Lipid Profile 12/21/2015 [facility] Triglycerides 116 mg/dL 18 (Trig/Chol/HDL) [phone] Cholesterol 154 mg/dL 19 HDL Cholesterol 43.4 mg/dL 20 LDL Cholesterol 87 mg/dL 21 Laboratory test 12/21/2015 [facility] Hemoglobin A1c 5.3 % Less than 22 finding [phone] (Glyco HGB) 6.0 Urine DIP 10/02/2015 In House Lab Specific 1.000 Low 1.01-1.02 (607)- - [place] Urine pH 8.0 High 5-6 Leukocytes NEG Neg Urine Nitrites NEG Neg Total Protein, Urine NEG Neg Urine Glucose NEG Norm Urine Ketones NEG Neg Urobilinogen NEG Norm Urine Bilirubin NEG Neg Urine Blood NEG Neg CBC No Diff 12/22/2014 [facility] White Blood 7.4 10^ 3/uL 4.8-10.8 [phone] Count Red Blood Count 4.42 10^6/uL 4.0-5.4 Hemoglobin 12.7 g/dL 12.0-16.0 Hematocrit 39 % 35-47 Mean Corpuscular Volume 89 fL 80-97 Mean Corpuscular Hemoglobin 29 pg 27-31 Mean Corpuscular HGB Conc 32 g/dL 31-36 Red Cell Distribution Width 14 % 10.5-15 Platelet Count 280 10^3/uL 150-450 Mean Platelet Volume 8 um3 7.4-10.4 Comp Metabolic Panel 12/22/2014 [facility] Sodium 136 mmol/L 133-145 [phone] Potassium 4.2 mmol/L 3.5-5.0 Chloride 101 mmol/L 101-111 Co2 Carbon Dioxide 31 mmol/L 22-32 Anion Gap 4 mmol/L 2-11 Glucose 88 mg/dL 70-100 Blood Urea Nitrogen 11 mg/dL 6-24 Creatinine 0.68 mg/dL 0.51-0.95 BUN/Creatinine Ratio 16.2 8-20 Calcium 9.2 mg/dL 8.6-10.3 Total Protein 6.3 g/dL Low 6.4-8.9 Albumin 4.2 g/dL 3.2-5.2 Globulin 2.1 g/dL 2-4 Albumin/Globulin Ratio 2.0 1-3 Total Bilirubin 0.40 mg/dL 0.2-1.0 Alkaline Phosphatase 57 U/L 34-104 Alt 15 U/L 7-52 Ast 15 U/L 13-39 Egfr Non- 92.0 >60 Egfr 118.3 >60 23 Laboratory test 12/22/2014 [facility] TSH (Thyroid 1.60 0.34-5.60 finding [phone] Stimulating Horm) IU/mL Lipid Profile 12/22/2014 [facility] Triglycerides 221 mg/dL 24 (Trig/Chol/HDL) [phone] Cholesterol 243 mg/dL 25 HDL Cholesterol 44.0 mg/dL 26 LDL Cholesterol 155 mg/dL 27 Laboratory test 09/20/2014 [facility] Cytology RUN DATE: finding [phone] 09/21/ <SEE NOTE> HPV High Risk 09/20/2014 [facility] Human See Comment 29 [phone] Papillomavirus Source HPV High Risk Type 16, PCR Negative Negative HPV High Risk Type 18, PCR Negative Negative HPV Other Risk types Negative Negative 30 Urine DIP 09/20/2014 In House Lab Specific [place] 1.005 Low 1.01-1.02 (607)- - Urine pH 8 High 5-6 Leukocytes + Neg Urine Nitrites NEG Neg Total Protein, Urine NEG Neg Urine Glucose NORM Norm Urine Ketones NEG Neg Urobilinogen NORM Norm Urine Bilirubin NEG Neg Urine Blood NEG Neg CBC No Diff 07/29/2013 [facility] White Blood 6.8 10^ 3/uL 4.8-10.8 [phone] Count Red Blood Count 4.36 10^6/uL 4.0-5.4 Hemoglobin 12.5 g/dL 12.0-16.0 Hematocrit 39 % 35-47 Mean Corpuscular Volume 89 fL 80-97 Mean Corpuscular Hemoglobin 29 pg 27-31 Mean Corpuscular HGB Conc 32 g/dL 31-36 Red Cell Distribution Width 14 % 10.5-15 Platelet Count 277 10^3/uL 150-450 Mean Platelet Volume 8 um3 7.4-10.4 Comp Metabolic Panel 07/29/2013 [facility] Sodium 136 mmol/L 133-145 [phone] Potassium 4.1 mmol/L 3.5-5.0 Chloride 103 mmol/L 101-111 Co2 Carbon Dioxide 28.0 mmol/L 22-32 Anion Gap 5.0 mmol/L 2-11 Glucose 92 mg/dL 70-100 Blood Urea Nitrogen 11 mg/dL 6-24 Creatinine 0.60 mg/dL 0.50-1.40 BUN/Creatinine Ratio 18.3 8-20 Calcium 9.2 mg/dL 8.1-9.9 Total Protein 6.0 g/dL Low 6.2-8.1 Albumin 4.1 g/dL 3.6-5.4 Globulin 1.9 g/dL Low 2-4 Albumin/Globulin Ratio 2.2 1-3 Total Bilirubin 0.7 mg/dL 0.4-1.5 Alkaline Phosphatase 51 U/L 30-110 Alt 16 U/L 14-54 Ast 18 U/L 12-42 Egfr Non- 106.7 >60 Egfr 137.2 >60 31 Lipid Profile 07/29/2013 [facility] Triglycerides 118 mg/dL 40-200 (Trig/Chol/HDL) [phone] Cholesterol 235 mg/dL High Less than 200 HDL Cholesterol 50 mg/dL 40-60 32 Cholesterol/HDL Ratio 4.7 Average High 1-4.44 LDL Cholesterol 161.4 High Less Than 100 33 Laboratory test 07/29/2013 [facility] TSH (Thyroid 1.35 0.34-5.60 finding [phone] Stimulating miu/mL Horm) Urine DIP 07/29/2013 In House Lab Leukocytes NEG Neg (607)- - Urine Nitrites NEG Neg Urine pH 5 5-6 Total Protein, Urine NEG Neg Urine Glucose NORM Norm Urine Ketones NEG Neg Urobilinogen NORM Norm Urine Bilirubin NEG Neg Urine Blood NEG Neg Specific [place] N/A Low 1.01-1.02 Laboratory test 08/20/2012 [facility] Cytology ------ 34 finding [phone] <SEE NOTE> CBC Auto Diff 08/20/2012 [facility] White Blood 6.2 CUMM 4.8- [phone] Count 10.8 Red Cell Count 4.09 CUMM Low 4.2-5.4 Hemoglobin 12.1 g/dL 12.0-16.0 Hematocrit 37 % 35-47 Mean Corpuscular Volume 90 um3 79-97 Mean Corpuscular Hemoglob 30 pg 27-31 Mean Corpuscular HGB Cone 33 g/dL 32-36 Redcell Distribution WDTH 14 % 10.5-15 Platelet Count 244 CUMM 150-450 Mean Platelet Volume 8.3 um3 7.4-10.4 Gran % 65.1 % 38-83 Lymph % 28.6 % 20-45 Mononuclear % 5.0 % 1-9 Eosinophil % 0.9 % 0-6 Basophil % 0.4 % 0-2 Abs Lymphs 1.8 1.0-4.8 Abs Mononuclear 0.3 0-0.8 Absolute Neutrophil Count 4.0 1.5-7.7 Abs Eosinophils 0.1 0-0.6 Abs Basophils 0 0-0.2 Comp Metabolic Panel 08/20/2012 [facility] Sodium 140 mmol/L 135-145 [phone] Potassium 3.9 mmol/L 3.5-5.0 Chloride 105 mmol/L 101-111 Co2 (Carbon Dioxide) 30.0 mmol/L 22-32 Anion Gap 5.0 mmol/L 2-11 35 Glucose 85 mg/dL 70-100 BUN 8 mg/dL 6-24 Creatinine 0.6 mg/dL 0.50-1.40 One Over Creatinine 1.66 BUN/Creatinine Ratio 13.3 8-20 Calcium 9.3 mg/dL 8.1-9.9 Total Protein 6.2 GM/DL 6.2-8.1 Albumin 4.0 GM/DL 3.6-5.4 Globulin 2.2 GM/DL 2-4 Albumin/Globulin Ratio 1.8 1-3 Bilirubin Total 0.7 mg/dL 0.4-1.5 36 Alkaline Phosphatase 56 U/L 30-110 Alt (SGPT) 19 U/L 14-54 Ast (Sgot) 22 U/L 12-42 eGFR Non- 107.2 > 60 eGFR 137.8 > 60 37 Lipid Profile 08/20/2012 [facility] Triglyceride 120 mg/dL 40-200 (Trig/Chol/HDL) [phone] Cholesterol 243 mg/dL High Less Than 200 38 High Density Lipoprotein 51 mg/dL 40-60 39 Cholesterol/HDL Ratio 4.76 AVERAGE High 1-4.44 Low Density Lipoprotein 168 mg/dL High Less Than 100 40 Urine DIP 08/20/2012 In House Lab Leukocytes TRACE Neg (607)- - Urine Nitrites NEG Neg Urine pH 5 5-6 Total Protein, Urine TRACE Neg Urine Glucose NORM Norm Urine Ketones NEG Neg Urobilinogen NORM Norm Urine Bilirubin NEG Neg Urine Blood NEG Neg Specific [place] NA Low 1.01-1.02 Laboratory test 08/20/2012 [facility] TSH 1.15 MIU/ ML 0.34-5.60 finding [phone] Urine DIP 12/28/2010 In House Lab Leukocytes neg Neg (607)- - Urine Nitrites neg Neg Urine pH 5 5-6 Total Protein, Urine neg Neg Urine Glucose norm Norm Urine Ketones neg Neg Urobilinogen norm Norm Urine Bilirubin neg Neg Urine Blood neg Neg Specific [place] na Low 1.01-1.02 Laboratory 12/28/2010 [facility] Cytology ----- 41 test finding [phone] <SEE NOTE> Laboratory 12/28/2010 [facility] TSH 1.59 MIU/ML 0.34 test finding [phone] Lipid Profile 12/28/2010 [facility] Triglyceride 140 mg/dL 40-2 (Trig/Chol/HDL [phone] ) Cholesterol 213 mg/dL High Less Than 200 42 High Density Lipoprotein 47 mg/dL 40-60 43 Cholesterol/HDL Ratio 4.53 AVERAGE High 1-4.44 Low Density Lipoprotein 138 mg/dL High Less Than 100 44 Comp Metabolic Panel 12/28/2010 [facility] Sodium 139 mmol/L 135-145 [phone] Potassium 3.8 mmol/L 3.5-5.0 Chloride 105 mmol/L 101-111 Co2 (Carbon Dioxide) 28.0 mmol/L 22-32 Anion Gap 6.0 mmol/L 2-11 45 Glucose 91 mg/dL 70-100 BUN 9 mg/dL 6-24 Creatinine 0.60 mg/dL 0.50-1.40 One Over Creatinine 1.60 BUN/Creatinine Ratio 15.0 8-20 Calcium 9.0 mg/dL 8.1-9.9 Total Protein 6.5 GM/DL 6.2-8.1 Albumin 4.2 GM/DL 3.6-5.4 Globulin 2.3 GM/DL 2-4 Albumin/Globulin Ratio 1.8 1-3 Bilirubin Total 0.6 mg/dL 0.4-1.5 46 Alkaline Phosphatase 55 U/L 30-110 Alt (SGPT) 15 U/L 14-54 Ast (Sgot) 19 U/L 12-42 eGFR Non- 108.1 > 60 eGFR 139.0 > 60 47 CBC With 12/28/2010 [facility] White Blood 7.8 CUMM 4.8-10.8 Electronic Diff [phone] Count Red Cell Count 4.29 CUMM 4.2-5.4 Hemoglobin 12.6 g/dL 12.0-16.0 Hematocrit 39 % 35-47 Mean Corpuscular Volume 90 um3 79-97 Mean Corpuscular Hemoglob 29 pg 27-31 Mean Corpuscular HGB Cone 33 g/dL 32-36 Redcell Distribution WDTH 13 % 10.5-15 Platelet Count 264 CUMM 150-450 Mean Platelet Volume 8.4 um3 7.4-10.4 Gran % 70.7 % 38-83 Lymph % 23.5 % Low 25-47 Mononuclear % 4.7 % 1-9 Eosinophil % 0.8 % 0-6 Basophil % 0.3 % 0-2 Abs Lymphs 1.8 1.0-4.8 Abs Mononuclear 0.4 0-0.8 Absolute Neutrophil Count 5.5 1.5-7.7 Abs Eosinophils 0.1 0-0.6 Abs Basophils 0 0-0.2 CBC With 09/27/2008 [facility] White Blood 6.0 CUMM 4.8-10.8 Electronic Diff [phone] Count Red Cell Count 4.36 CUMM 4.2-5.4 Hemoglobin 12.6 g/dL 12.0-16.0 Hematocrit 38 % 35-47 Mean Corpuscular Volume 88 um3 79-97 Mean Corpuscular Hemoglob 29 pg 27-31 Mean Corpuscular HGB Cone 33 g/dL 32-36 Redcell Distribution WDTH 14 % 10.5-15 Platelet Count 299 CUMM 150-450 Mean Platelet Volume 7.6 um3 7.4-10.4 Gran % 63.1 % 38-83 Lymph % 29.2 % 20-45 Mononuclear % 5.0 % 1-9 Eosinophil % 2.2 % 0-6 Basophil % 0.5 % 0-2 Abs Lymphs 1.8 1.0-4.8 Abs Mononuclear 0.3 0-0.8 Absolute Neutrophil Count 3.8 1.5-7.7 Abs Eosinophils 0.1 0-0.6 Abs Basophils 0 0-0.2 Comp Metabolic Panel 09/27/2008 [facility] Sodium 140 mmol/L 135-145 [phone] Potassium 4.1 mmol/L 3.5-5.0 Chloride 105 mmol/L 101-111 Co2 (Carbon Dioxide) 29.0 mmol/L 22-32 Anion Gap 6.0 mmol/L 2-11 48 Glucose 86 mg/dL 70-100 49 BUN 12 mg/dL 6-24 Creatinine 0.54 mg/dL 0.50-1.40 One Over Creatinine 1.80 BUN/Creatinine Ratio 22.2 High 8-20 Calcium 9.5 mg/dL 8.1-9.9 50 Total Protein 7.0 GM/DL 6.2-8.1 Albumin 4.3 GM/DL 3.6-5.4 Globulin 2.7 GM/DL 2-4 Albumin/Globulin Ratio 1.6 1-3 Bilirubin Total 0.8 mg/dL 0.4-1.5 Alkaline Phosphatase 59 U/L 30-110 Alt (SGPT) 17 U/L 14-54 Ast (Sgot) 21 U/L 12-42 Lipid Profile 09/27/2008 [facility] Triglyceride 123 mg/dL 40-200 (Trig/Chol/HDL) [phone] Cholesterol 223 mg/dL High Less Than 200 51 High Density Lipoprotein 52 mg/dL 40-60 52 Cholesterol/HDL Ratio 4.29 AVERAGE 1-4.44 Low Density Lipoprotein 146 mg/dL High Less Than 100 53 Laboratory test 09/27/2008 [facility] TSH 1.30 MIU/ ML 0.34-5.60 finding [phone] Amylase 64 U/L 30-125 Lipase 22 U/L 22-51 Urine DIP 09/27/2008 [facility] House Lab Leukocytes TRACE Neg (607)- - Urine Nitrites NEG Neg Urine pH 9 High 5-6 Total Protein, Urine NEG Neg Urine Glucose NORM Norm Urine Ketones NEG Neg Urobilinogen NORM Norm Urine Bilirubin NEG Neg Urine Blood NEG Neg Specific [place] N/A Low 1.01-1.02 Laboratory test 09/27/2008 [facility] Cytology ------ <SEE 54 finding [phone] NOTE> 1 Because ethnic data is not always readily available, this report includes an eGFR for both -Americans and non- Americans. The National Kidney Disease Education Program (NKDEP) does not endorse the use of the MDRD equation for patients that are not between the ages of 18 and 70, are , have extremes of body size, muscle mass, or nutritional status, or are non- or non-. According to the National Kidney Foundation, irrespective of diagnosis, the stage of the disease is based on the level of kidney function: Stage Description GFR(mL/min/1.73 m(2)) 1 Kidney damage with normal or decreased GFR 90 2 Kidney damage with mild decrease in GFR 60-89 3 Moderate decrease in GFR 30-59 4 Severe decrease in GFR 15-29 5 Kidney failure <15 (or dialysis) 2 Because ethnic data is not always readily available, this report includes an eGFR for both -Americans and non- Americans. The National Kidney Disease Education Program (NKDEP) does not endorse the use of the MDRD equation for patients that are not between the ages of 18 and 70, are , have extremes of body size, muscle mass, or nutritional status, or are non- or non-. According to the National Kidney Foundation, irrespective of diagnosis, the stage of the disease is based on the level of kidney function: Stage Description GFR(mL/min/1.73 m(2)) 1 Kidney damage with normal or decreased GFR 90 2 Kidney damage with mild decrease in GFR 60-89 3 Moderate decrease in GFR 30-59 4 Severe decrease in GFR 15-29 5 Kidney failure <15 (or dialysis) 3 <5.0 Negative 5.0 - 25.0 Indeterminate (Repeat testing recommended after 72 hours) >25.0 Positive Perimenopausal women can display HCG levels of up to 20 mIU/mL 4 [id number] 6 Normally menstruating females - Follicular phase 3 - 9 - Mid-cycle peak 4 - 23 - Luteal phase 1 - 6 Postmenopausal females 16 - 114 7 Normally menstruating females - Follicular Phase 1 - 18 - Mid-Cycle Peak 24 - 105 - Luteal Phase 0.6 - 20 Postmenopausal females 15 - 62 8 [id number] 9 [id number] 10 Because ethnic data is not always readily available, this report includes an eGFR for both -Americans and non- Americans. The National Kidney Disease Education Program (NKDEP) does not endorse the use of the MDRD equation for patients that are not between the ages of 18 and 70, are , have extremes of body size, muscle mass, or nutritional status, or are non- or non-. According to the National Kidney Foundation, irrespective of diagnosis, the stage of the disease is based on the level of kidney function: Stage Description GFR(mL/min/1.73 m(2)) 1 Kidney damage with normal or decreased GFR 90 2 Kidney damage with mild decrease in GFR 60-89 3 Moderate decrease in GFR 30-59 4 Severe decrease in GFR 15-29 5 Kidney failure <15 (or dialysis) 11 [id number] 12 Desirable: <150 Borderline High: 150-199 High: 200-499 Very High: >500 13 Desirable: <200 Borderline High: 200-239 High: >239 14 Low: <40 Desirable: 40-60 High: >60 15 Desirable: <100 Near Optimal: 100-129 Borderline High: 130-159 High: 160-189 Very High: >189 16 [id number] 17 SEE RESULT BELOW Name: VERONIKA KLEIN : [address]: Ramiro Tamez MD Acct: [id number] Unit: [id number] AGE: 50 Location: ENDO Re01/05/16 SEX: F Status: REG REF SPEC: [id number] SUSHILA: 01/05/16-[address] [facility] [address]: Ramiro Tamez MD REQ: [id number] RECD: 01/05/16-1510 STATUS: NAJMA SHIPMAN DR: True Atwood WIRE MESH KNITTER _ ORDERED: LEVEL IV FINAL DIAGNOSIS Colon, at 18 cm, biopsy: -- Tubular adenoma. -- No high grade dysplasia or malignancy. CLINICAL HISTORY Screening colonoscopy POST-OPERATIVE DIAGNOSIS Colonoscopy to cecum, very good prep. 2 x 2 mm sessile polyp at 18 cm jumbo biopsy removed, otherwise negative. Conclusion: Diminutive polyp at 18 cm, recall 5-10 years. GROSS DESCRIPTION The specimen is received in formalin labeled, Biopsy Colon Polyp at 18 cm, and consists of a 0.5 x 0.3 x 0.2 cm del cid irregular soft tissue fragment, which is submitted entirely in one cassette. Signed (signature on file) Khadra Crook MD 1045 END OF REPORT * ML=Testing performed at Main Lab DEPARTMENT OF PATHOLOGY, [address] [place] [address] Ezekiel Dowd M.D. Director [facility] # [id number] 18 Desirable <150 Borderline high 150-199 High 200-499 Very High >500 19 Desirable <200 Borderline high 200-239 High >239 20 Low <40 Desirable: 40-60 High: >60 21 Desirable: <100 mg/dL Near Optimal: 100-129 mg/dL Borderline High: 130-159 mg/dL High: 160-189 mg/dL Very High: >189 mg/dL 22 Therapeutic target for the treatment of diabetes Mellitus patients is <7% HBA1C, and in selective patients <6.0%.Please refer to [place] [employer] Diabetic care guidelines for further information. 23 Because ethnic data is not always readily available, this report includes an eGFR for both -Americans and non- Americans. The National Kidney Disease Education Program (NKDEP) does not endorse the use of the MDRD equation for patients that are not between the ages of 18 and 70, are , have extremes of body size, muscle mass, or nutritional status, or are non- or non-. According to the National Kidney Foundation, irrespective of diagnosis, the stage of the disease is based on the level of kidney function: Stage Description GFR(mL/min/1.73 m(2)) 1 Kidney damage with normal or decreased GFR 90 2 Kidney damage with mild decrease in GFR 60-89 3 Moderate decrease in GFR 30-59 4 Severe decrease in GFR 15-29 5 Kidney failure <15 (or dialysis) 24 Desirable <150 Borderline high 150-199 High 200-499 Very High >500 25 Desirable <200 Borderline high 200-239 High >239 26 Low <40 Desirable: 40-60 High: >60 27 Desirable <100 Near Optimal 100-129 Borderline high 130-159 High 160-189 Very High >189 28 RUN DATE: 09/21/14 [facility] LIVE PAGE 1 RUN TIME: [address] [place], [place] [address] Specimen Inquiry Name: VERONIKA KLEIN : [address]: True Atwood NP Acct: [id number] Unit: [id number] AGE: 49 Location: [facility] Re09/20/14 SEX: F Status: REG REF SPEC: [id number] SUSHILA: 09/20/[address]: True Atwood NP REQ: [id number] RECD: 09/20/14 STATUS: SOUT _ ORDERED: IMAGE ANALYSIS, HPV/Thin Prep FINAL DIAGNOSIS Negative for Intraepithelial lesion or Malignancy COMMENTS: Specimen sent to [facility] in [place], [place] on 09/21/14 by REBECCA at 0949. Results will be reported separately. A. Ectocervical/Endocervical Specimen Adequacy: Satisfactory of evaluation Transformation zone component identified Patient Information: HPV: High risk HPV DNA testing regardless of pap results. Actual Specimen Date: 09/20/14 Last Menstrual Date: 09/05/14 Date of Last Specimen: 08/20/12 Signed (signature on file) DavidFLORY Hilton (ASCP) 09/21 1125 This Pap test was evaluated with the assistance of the Constant TherapyPrep Test Imaging System. Due to cytologic findings at the crate repairer microscope, comprehensive manual rescreening by a Library Clerk may be required. The Pap Smear is a screening test designed to aid in the detection of premalignant and malignant conditions of the uterine cervix. It is not a diagnostic procedure and should not be used as the sole means of detecting cervical cancer. Both false- positive and false- negative reports do occur. Depending on your risk status, a Pap smear shoudl be obtained and evaluated every 1-3 years. END OF REPORT * ML=Testing performed at Main Lab DEPARTMENT OF PATHOLOGY, [address] [place] [address] Ezekiel Dowd M.D. Director [facility] # [id number] 29 RESULT: Ectocervical/Endocervical 30 The following Other High Risk HPV types were not detected: 31, 33, 35, 39, 45, 51, 52, 56, 58, 59, 66, and 68 Test Performed by: [address] [address] Electronics Utility Worker: Bhupendra Hunt M.D. 31 Because ethnic data is not always readily available, this report includes an eGFR for both -Americans and non- Americans. The National Kidney Disease Education Program (NKDEP) does not endorse the use of the MDRD equation for patients that are not between the ages of 18 and 70, are , have extremes of body size, muscle mass, or nutritional status, or are non- or non-. According to the National Kidney Foundation, irrespective of diagnosis, the stage of the disease is based on the level of kidney function: Stage Description GFR(mL/min/1.73 m(2)) 1 Kidney damage with normal or decreased GFR 90 2 Kidney damage with mild decrease in GFR 60-89 3 Moderate decrease in GFR 30-59 4 Severe decrease in GFR 15-29 5 Kidney failure <15 (or dialysis) 32 HDL Interpretation: Undesirable: High Risk: Less than 40 mg/dL Desirable: Low Risk: Greater than 60 mg/dL 33 LDL Interpretation: Low Risk Optimal Level: LDL Less than 100 mg/dL Near or Above Optimal: LDL 100-129 mg/dL Borderline High Risk: LDL 130-159 mg/dL High Risk: LDL 160-189 mg/dL Very High Risk: LDL Greater than 189 mg/dL 34 ---- RUN DATE: 08/20/12 [facility] NMI LIVE PAGE 1 RUN TIME: 1538 Specimen Inquiry RUN USER: INTERFACE -- Name: LATOYAVERONIKA Status: REG REF Re08/20/12 Age/Sex: 47/F Unit#: [id number] [facility] -- Specimen: [id number] SOUT Spec Date:08/20/12-[address]: True Thakur [facility] WIRE MESH KNITTER Spec Type: CYTOLOGY Received:08/20/12-1448 Copies to: SOURCE ECTOCERVICAL/ENDOCERVICAL Thin Prep with Reflex HPV Test PATIENT INFORMATION ACTUAL COLLECTION DATE: 08/20/12 LAST MENSTRUAL PERIOD: 08/03/12 DATE OF PRIOR SPECIMEN: 12/28/10 ADEQUACY OF SPECIMEN Satisfactory for evaluation * Transformation zone component identified * DIAGNOSIS NEGATIVE FOR INTRAEPITHELIAL LESION OR MALIGNANCY * This Pap test was evaluated with the assistance of the Constant TherapyPrep Pap Test Imaging System. The Pap Smear is a screening test designed to aid in the detection of premalign ant and malignant conditions of the uterine cervix. It is not a diagnostic procedure a nd should not be used as the sole means of detecting cervical cancer. Both false- positiv e and false-negative reports do occur. Depending on your risk status, a Pap smear john uld be obtained and evaluated every one to three years. Initial evaluation performed by Kirstin LOPEZASC) 08/20/12 Final Interpretation electronically signed by: Kirstin LOPEZ(ASCP) 08/20/12 1536 -- -- DEPARTMENT OF PATHOLOGY, [address] [place] [address] [facility] Permit #[id number] Ezekiel Dowd M.D. Director Ellyn Vicente M.D. Emblem Cutter Dir katya -- 35 Anion gap measurement may be of limited value in the presence of any alkalosis, especially in a combined acid base disorder. . 36 A metabolite of Naproxen, O-desmethylnaproxen, has been shown to interfere with the Jendrassik-Redbird Smith method for measuring total bilirubin. Samples from patients who have taken Naproxen have shown spurious elevation in total bilirubin levels. 37 Because ethnic data is not always readily available, this report includes an eGFR for both -Americans and non- Americans. The National Kidney Disease Education Program (NKDEP) does not endorse the use of the MDRD equation for patients that are not between the ages of 18 and 70, are , have extremes of body size, muscle mass, or nutritional status, or are non- or non-. According to the National Kidney Foundation, irrespective of diagnosis, the stage of the disease is based on the level of kidney function: Stage Description GFR(mL/min/1.73 m(2)) 1 Kidney damage with normal or decreased GFR 90 2 Kidney damage with mild decrease in GFR 60-89 3 Moderate decrease in GFR 30-59 4 Severe decrease in GFR 15-29 5 Kidney failure <15 (or dialysis) 38 CHOLESTEROL INTERPRETATION: Desirable: Less than 200 MG/DL Borderline-High Risk: 200-239 MG/DL High-Risk: 240 MG/DL and over 39 HDL INTERPRETATION: Undesirable: High Risk: Less than 40 MG/DL Desirable: Low Risk: Greater than 60 MG/DL 40 LDL INTERPRETATION: Low Risk Optimal Level: LDL Less than 100 MG/DL Near or Above Optimal: LDL 100-129 MG/DL Borderline High Risk: LDL 130-159 MG/DL High Risk: LDL 160-189 MG/DL Very High Risk: LDL Greater than 189 MG/DL 41 ---- RUN DATE: 12/31/10 [facility] NMI LIVE PAGE 1 RUN TIME: 1253 Specimen Inquiry RUN USER: INTERFACE -- Name: VERONIKA KLEIN Status: REG REF Re12/28/10 Age/Sex: 45/F Unit#: [id number] Location: [facility] : 65 -- Specimen: [id number] Spec Date: 12/28/[address]: True lobo NP Spec Type: CYTOLOGY Received: 12/31/10-09 Copies to: SOURCE ECTOCERVICAL/ENDOCERVICAL Thin Prep with Reflex HPV Test PATIENT INFORMATION ACTUAL COLLECTION DATE: 12/28/10 LAST MENSTRUAL PERIOD: 11/27/10 DATE OF PRIOR SPECIMEN: 09/27/08 ADEQUACY OF SPECIMEN Satisfactory for evaluation * Transformation zone component identified * DIAGNOSIS NEGATIVE FOR INTRAEPITHELIAL LESION OR MALIGNANCY * This Pap test was evaluated with the assistance of the Constant TherapyPrep Pap Test Imaging System. The Pap Smear is a screening test designed to aid in the detection of premalign ant and malignant conditions of the uterine cervix. It is not a diagnostic procedure a nd should not be used as the sole means of detecting cervical cancer. Both false- positiv e and false-negative reports do occur. Depending on your risk status, a Pap smear john uld be obtained and evaluated every one to three years. Initial evaluation performed by Kirstin LOPEZ(ASC) 12/31/10 Final Interpretation electronically signed by: Kirstin LOPEZ(ASCP) 12/31/10 1253 -- -- DEPARTMENT OF PATHOLOGY, [address] [place] [address] [facility] Permit #[id number] Ezekiel Dowd M.D. Director Ellyn Vicente M.D. Emblem Cutter Dir aldana -- 42 CHOLESTEROL INTERPRETATION: Desirable: Less than 200 MG/DL Borderline-High Risk: 200-239 MG/DL High-Risk: 240 MG/DL and over 43 HDL INTERPRETATION: Undesirable: High Risk: Less than 40 MG/DL Desirable: Low Risk: Greater than 60 MG/DL 44 LDL INTERPRETATION: Low Risk Optimal Level: LDL Less than 100 MG/DL Near or Above Optimal: LDL 100-129 MG/DL Borderline High Risk: LDL 130-159 MG/DL High Risk: LDL 160-189 MG/DL Very High Risk: LDL Greater than 189 MG/DL 45 Anion gap measurement may be of limited value in the presence of any alkalosis, especially in a combined acid base disorder. . 46 A metabolite of Naproxen, O-desmethylnaproxen, has been shown to interfere with the Jendrassik-Iván method for measuring total bilirubin. Samples from patients who have taken Naproxen have shown spurious elevation in total bilirubin levels. 47 Because ethnic data is not always readily available, this report includes an eGFR for both -Americans and non- Americans. The National Kidney Disease Education Program (NKDEP) does not endorse the use of the MDRD equation for patients that are not between the ages of 18 and 70, are , have extremes of body size, muscle mass, or nutritional status, or are non- or non-. According to the National Kidney Foundation, irrespective of diagnosis, the stage of the disease is based on the level of kidney function: Stage Description GFR(mL/min/1.73 m(2)) 1 Kidney damage with normal or decreased GFR 90 2 Kidney damage with mild decrease in GFR 60-89 3 Moderate decrease in GFR 30-59 4 Severe decrease in GFR 15-29 5 Kidney failure <15 (or dialysis) 48 Anion gap measurement may be of limited value in the presence of any alkalosis, especially in a combined acid base disorder. . 49 Note change in reference range as of 07/14/08. The change was based on recommendations from the [place] [employer]. 50 Please note change in reference range effective 08 . 51 CHOLESTEROL INTERPRETATION: Desirable: Less than 200 MG/DL Borderline-High Risk: 200-239 MG/DL High-Risk: 240 MG/DL and over 52 HDL INTERPRETATION: Undesirable: High Risk: Less than 40 MG/DL Desirable: Low Risk: Greater than 60 MG/DL 53 LDL INTERPRETATION: Low Risk Optimal Level: LDL Less than 100 MG/DL Near or Above Optimal: LDL 100-129 MG/DL Borderline High Risk: LDL 130-159 MG/DL High Risk: LDL 160-189 MG/DL Very High Risk: LDL Greater than 189 MG/DL 54 ---- RUN DATE: 09/28/08 [facility] NMI LIVE PAGE 1 RUN TIME: 1153 Specimen Inquiry RUN USER: INTERFACE -- Name: VERONIKA KLEIN Status: REG REF Re09/27/08 Age/Sex: 43/F Unit#: [id number] Location: [facility]. : 65 -- Specimen: [id number] SOUT Spec Date: 09/27/[address]: True lobo NP Spec Type: CYTOLOGY Received: 09/28/08 Copies to: SOURCE ECTOCERVICAL/ENDOCERVICAL Thin Prep with Reflex HPV Test PATIENT INFORMATION ACTUAL COLLECTION DATE: 09/27/08 LAST MENSTRUAL PERIOD: 09/07/08 ADEQUACY OF SPECIMEN Satisfactory for evaluation * Transformation zone component identified * DIAGNOSIS NEGATIVE FOR INTRAEPITHELIAL LESION OR MALIGNANCY * This Pap test was evaluated with the assistance of the ThinPrep Pap Test Imaging System. The Pap Smear is a screening test designed to aid in the detection of premalign ant and malignant conditions of the uterine cervix. It is not a diagnostic procedure a nd should not be used as the sole means of detecting cervical cancer. Both false- positive and false-negative reports do occur. Depending on your risk status, a Pap smear john uld be obtained and evaluated every one to three years. Final Interpretation electronically signed by: Vik HOLCOMB(ASCP) 09/28/08 115 3 -- -- DEPARTMENT OF PATHOLOGY, [address] [place] [address] [facility] Permit #[id number] Ezekiel Dowd M.D. Director of [facility] -- Procedures Date Code Description Status 09/15/2017 86360 EKG, at Least 12 Leads w/Interpretation and Report Completed 11/24/2015 [id number] Colonoscopy Completed Encounters Type Date Location Provider Dx Diagnosis Office Visit 08/03/2018 Main Office Tere Stanford R21 Rash and other 9:15a WIRE MESH KNITTER nonspecific skin eruption R06.02 Shortness of breath Office Visit 06/19/2018 11:15a Main Office Clarence Schofield MD Office Visit 04/28/2018 8:00a Main Office Tere N95.8 Other specified Shortle, WIRE MESH KNITTER menopausal and perimenopausal disorders Office Visit 03/16/2018 4:30p Main Office Tere Larios95.8 Other specified Shortle, WIRE MESH KNITTER menopausal and perimenopausal disorders Office Visit 02/19/2018 4:15p Main Office True Salgado N95.8 Other specified Storm, ACTIVITY THERAPIST-C menopausal and perimenopausal disorders Office Visit 10/09/2017 9:45a Main Office True Michel Scabies Storm, ACTIVITY THERAPIST-C Office Visit 09/15/2017 8:45a Main Office Gaurangwntisiah R. Z00.00 Encntr for general Storm, ACTIVITY THERAPIST-C adult medical exam w/o abnormal findings Z12.31 Encntr screen mammogram for malignant neoplasm of breast Z23 Encounter for immunization Office Visit 09/17/2016 8:45a Main Office Gaurangwcuco Atwood, Z00.00 Encntr for general ACTIVITY THERAPIST-C adult medical exam w/o abnormal findings F43.0 Acute stress reaction E78.5 Hyperlipidemia, unspecified Z12.31 Encntr screen mammogram for malignant neoplasm of breast Z23 Encounter for immunization Office Visit 10/02/2015 11:15a Main Office Gaurangwcuco Atwood, Z00.00 Encntr for general ACTIVITY THERAPIST-C adult medical exam w/o abnormal findings Z23 Encounter for immunization E78.2 Mixed hyperlipidemia Z12.31 Encntr screen mammogram for malignant neoplasm of breast Office Visit 09/09/2015 10:00a Main Office True Salgado H81.10 Benign paroxysmal Storm, ACTIVITY THERAPIST-C vertigo, unspecified ear Office Visit 05/29/2015 10:30a Main Office Gaurangwcuco R. 847.2 Sprains & Strains Storm, ACTIVITY THERAPIST-C Lumbar Office Visit 09/20/2014 8:45a Main Office Gaurangwnti R. V70.0 Examination General Storm, ACTIVITY THERAPIST-C Medical Routine AT Health Care Facility 300.00 Anxiety State Unspec 272.2 Hyperlipidemia Mixed V72.62 Laboratory Exam Ordered as Part Of Routine General Med Exam V04.81 Need For Prophylactic Vaccination & Inoculation/Influenza Office Visit 07/29/2013 9:00a Main Office Gaurangwcuco Atwood, V06.5 Tetanus Diphtheria ACTIVITY THERAPIST-C (DT) V70.0 Examination General Medical Routine AT Health Care Facility V72.62 Laboratory Exam Ordered as Part Of Routine General Med Exam V06.5 Tetanus Diphtheria (DT) Office Visit 05/21/2013 11:45a Main Office Delfinntisiah RSalomon 372.72 Conjunctival Storm, ACTIVITY THERAPIST-C Hemorrhage Office Visit 11/26/2012 10:45a Main Office True Salgado 465.9 URI Upper Storm, ACTIVITY THERAPIST-C Respiratory Infections Acute Unspec Sites Office Visit 09/08/2012 2:30p Main Office True RSalomon 911.4 Injury Superficial Storm, ACTIVITY THERAPIST-C Insect Bite Trunk Nonvenomous W/O Infect Office Visit 08/20/2012 9:00a Main Office True R. V70.0 Examination General Storm, ACTIVITY THERAPIST-C Medical Routine AT [facility] 272.4 Hyperlipidemia Other Unspec V04.81 Need For Prophylactic Vaccination & Inoculation/Influenza Office Visit 12/28/2010 8:00a Main Office True RSalomon V72.31 Routine Pyrotechnician Storm, ACTIVITY THERAPIST-C Examination V70.0 Examination General Medical Routine AT [facility] 386.11 Vertigo Benign Paroxysmal Position Office Visit 09/27/2008 8:00a Main Office True RSalomon V72.31 Routine Pyrotechnician Storm, ACTIVITY THERAPIST-C Examination V70.0 Examination General Medical Routine AT [facility] V16.49 Family History Malignant Neoplasm Other 272.4 Hyperlipidemia Other Unspec V04.81 Need For Prophylactic Vaccination & Inoculation/Influenza Plan of Treatment 08/21/2018 - GOLDIE Champion-CZ01.818 Encounter for other preprocedural examinationComments:medically stable for planned procedure, normal cardiac evaluation this week with cardiac clearance.N92.1 Excessive and frequent menstruation with irregular cycle
--- OUTSIDE RECORDS SUMMARY | 2018-09-02 14:44 | XMS REPORT ---
:1965 External Reference #:[id number] Author Organization [employer] Address [address] [facility] [place] [address] [place] [address] Phone [phone] Care Team Providers Name Role Phone True Atwood NP Primary Care Physician Unavailable Payers Type Date Identification Numbers Payment Provider Subscriber Health Maintenance Effective: Policy Number: Con Molina [facility] Ayala Demarco [facility] (O) 11/02/2013 [id number] PayID: [id number] [address] [address] [place] [address] Medigap Part B Effective: Policy Number: Con Demarco 12/25/2010 [id number] Expires: 08/23/2015 Group Number: [id number] [address] [address] PayID: [id number] [place] [id number] Problems Date Description Provider Status Onset: 09/18/2015 Lesion of ulnar nerve Dorothy Nix MD Active Family History Date Family Member(s) Problem(s) Comments General Diabetes Father Diabetes Father Heart Disease Father Hypercholesterolemia Mother Diabetes Mother Hypercholesterolemia First Brother Hypercholesterolemia Social History Type Date Description Comments Marital Status Lives With 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 Allergies, Adverse Reactions, Alerts Date Description Reaction Status Severity Comments 11/05/2013 Penicillins active 11/05/2013 Tetracycline active 11/05/2013 Adhesive Tape active Medications Medication Date Status Form Strength Qnty SIG Indications Ordering Provider Atorvastatin Calcium Active Tablets 10mg 1 by Unknown /0000 mouth every day Alprazolam Active Tablets 0.25mg one by Unknown /0000 Dispers mouth up to two times daily as needed for anxiety Vitamin B12 Active Tablets 1000mcg 1 by Unknown /0000 ER mouth once week Megestrol Acetate Active Tablets 40mg 1 po Ajit, /0000 twice Alma Delia daily MD Mellisa Celebrex 09/10 Hx Capsules 200mg 60cap 1 tab by George s mouth Jayden, - every day M.D. 08/12 pain Oxycodone HCL 06/11 Hx Tablets 5mg 20tab Take 1 George s tablet po Jayden, - q6 hr prn M.D. 08/04 pain /2018 Methylprednisolone 05/28 Hx Tablets 4mg 1tabs take as George Dose directed Jayden - ( M.D. 08/04 finished) Meloxicam Hx Tablets 7.5mg take one Unknown /0000 tab twice - daily as 07/28 needed for pain, avoid other nsaids Vital Signs Date Vital Result Comment 08/19/2018 Height 64 inches 5'4" Weight 173.00 lb Heart Rate 80 /min BP Systolic 140 mmHg Rue Reg Cuff BP Diastolic 80 mmHg Rue Reg Cuff BP Systolic Sitting 128 mmHg lue reg cuff BP Diastolic Sitting 70 mmHg lue reg cuff BP Systolic Standing 148 mmHg BP Diastolic Standing 90 mmHg Respiratory Rate 16 /min BMI (Body Mass Index) 29.7 kg/m2 09/18/2015 Height 64 inches 5'4" Weight 156.00 lb Pain Level 3 BMI (Body Mass Index) 26.8 kg/m2 Results Test Date Test Result H/L Range Note Laboratory test finding 08/19/2018 B-Type Natriuretic <pending> Peptide BNP Procedures Date CPT Code Description Status 08/19/2018 39922 EKG Tracing & Interpretation Completed 03/17/2012 30813 Rad Shoulder Comp, Min. 2 Views Completed Encounters Type Date Location Provider CPT E/M Dx Office Visit 09/18/2015 1:15p [facility] [place] [address] G56.21 [facility] M65.311 Office Visit 09/10/2012 8:15a [facility] M.D. 31384 726.0 C[facility] Office Visit 07/16/2012 10:00a [facility] M.D. 48466 726.2 C[facility] Office Visit 06/25/2012 1:30p [facility] M.D. 31511 726.2 C.M[facility]. Office Visit 05/28/2012 10:15a [facility] M.D. 17428 726.2 C.M[facility] Office Visit 03/17/2012 1:00p [facility] M.D. 14399 726.2 C.M.A. Plan of Care Future Appointment(s):08/21/2018 12:00 pm - Ghanshyam Nielsen DO FACC at [facility]08/20/2018 8:15 am - Ghanshyam Nielsen DO FACC at [facility]08/19/2018 - Ghanshyam Nielsen, DO FACCR06.02 Shortness of breathNew Orders:EchocardiogramStress Test, Treadmill, No ImagingFollow up: Please schedule echo at [facility] and treadmill study Friday at [facility] f/u PRNE78.2 Mixed lldiwsvkejkjobE82.89 Other chest painZ01.810 Encounter for preprocedural cardiovascular examination
--- NOTE | 2018-09-02 14:47 | ED ---
Abdominal Pain/Female - HPI Summary HPI Summary: This pt is a 53 y/o female presenting to [facility] c/o lower abdominal pain s/p hysterectomy 1 week ago. Pt states she had a vaginal hysterectomy with Dr. Fong in [place] for pre-uterine CA, fallopian tubes were also removed but not ovaries. She reports that since then pt has been having lower abdominal pain. She states rectal spasm began a couple of days ago for the last couple of days, which make it difficult for her to have a bowel movement. Pt denies any fever until today, she is noted to have a temp of 102.9 F here in the ED. Additionally reports nausea. Denies urinary symptoms, vaginal bleeding, chest pain, SOB. - History of Current Complaint Chief Complaint: EDAbdPain Stated Complaint: POST-SURGICAL PAIN,FEVER Time Seen by Provider: 09/02/18 14:33 Hx Obtained From: Patient Onset/Duration: Lasting Days, Still Present Timing: Days Severity Currently: Moderate Pain Intensity: 7 Pain Scale Used: 0-10 Numeric Location: Other - lower abd Radiates: No Aggravating Factor(s): Nothing Alleviating Factor(s): Nothing Associated Signs and Symptoms: Positive: Fever, Nausea, Other: - POS: rectal spasm, difficulty in having bowel movements. NEG: SOB. Negative: Chest Pain, Urinary Symptoms, Vaginal Bleeding, Vaginal Discharge, Vomiting Allergies/Adverse Reactions: Allergies Allergy/AdvReac Type Severity Reaction Status Date / Time Penicillins Allergy Severe Hives Verified 08/07/18 16:20 tetracycline Allergy Intermediate Hives Verified 08/07/18 16:21 paroxetine [From Paxil] Allergy Anaphylatic Verified 08/07/18 16:22 Shock Home Medications: Home Medications Cyanocobalamin (Vitamin B-12) [Vitamin B-12] 1,000 mcg PO DAILY 09/02/18 [ History Confirmed 09/02/18] Ibuprofen 800 mg PO Q8HR PRN 09/02/18 [History Confirmed 09/02/18] hydrOXYzine HCl [Hydroxyzine HCl] 25 mg PO Q6HR PRN 09/02/18 [History Confirmed 09/02/18] oxyCODONE/Acetamin 5/325 MG* [Percocet 5/325 TAB*] 1 tab PO Q6H PRN 09/02/18 [ History Confirmed 09/02/18] PMH/Surg Hx/FS Hx/Imm Hx Endocrine/Hematology History: Denies: Hx Diabetes Cardiovascular History: Reports: Hx Angina, Hx Hypercholesterolemia Denies: Hx Hypertension Respiratory History: Denies: Hx Asthma, Hx Chronic Obstructive Pulmonary Disease (COPD) History: Denies: Hx Renal Disease - Cancer History Hx Chemotherapy: No Hx Radiation Therapy: No - Surgical History Surgery Procedure, Year, and Place: ACROMIOPLASTY-RIGHT. D&C. Hysterectomy 02/08 Infectious Disease History: No Infectious Disease History: Denies: Traveled Outside the [place] in Last 30 Days - Family History Known Family History: Positive: Cardiac Disease - Father with fatal OR, Diabetes - Social History Alcohol Use: Rare Substance Use Type: Reports: None Smoking Status (MU): Former Smoker Type: Cigarettes Have You Smoked in the Last Year: No Review of Systems Positive: Fever, Chills Negative: Chest Pain Negative: Shortness Of Breath Gastrointestinal: Other - rectal spasm Positive: Abdominal Pain, Nausea. Negative: Vomiting Positive: no symptoms reported. Negative: other - vaginal bleeding All Other Systems Reviewed And Are Negative: Yes Physical Exam - Summary Physical Exam Summary: VITAL SIGNS: Reviewed. GENERAL: Patient is a well-developed and nourished female who is lying comfortable in the stretcher. Patient is not in any acute respiratory distress. HEAD AND FACE: Normocephalic and atraumatic. EYES: PERRLA, EOMI x 2, No injected conjunctiva. EARS: Hearing grossly intact. Ear canals and tympanic membranes are WNL. MOUTH: Oropharynx within normal limits. NECK: Supple, trachea is midline, no adenopathy, no JVD. CHEST: Symmetric, no tenderness at palpation LUNGS: Clear to auscultation bilaterally. No wheezing or crackles. CVS: tachycardic rate, S1 and S2 present, no murmurs or gallops appreciated. ABDOMEN: Soft, non-tender. No signs of distention. Positive bowel sounds. No rebound no guarding, and no masses palpated. No abdominal bruit or pulsations. EXTREMITIES: FROM in all major joints, no edema, no cyanosis or clubbing. NEURO: Alert and oriented x 3. No acute neurological deficits. Speech is normal. SKIN: Dry and warm. Febrile. Triage Information Reviewed: Yes Vital Signs On Initial Exam: Initial Vitals Temp Pulse Resp BP Pulse Ox 102.9 F 132 20 147/65 98 09/02/18 14:18 09/02/18 14:18 09/02/18 14:18 09/02/18 14:18 09/02/18 14:18 Vital Signs Reviewed: Yes Diagnostics - Vital Signs Vital Signs Temp Pulse Resp BP Pulse Ox 09/02/18 14:18 102.9 F 132 20 147/65 98 - Laboratory Result Diagrams: 09/03/18 05:40 09/03/18 05:40 Lab Statement: Any lab studies that have been ordered have been reviewed, and results considered in the medical decision making process. - Radiology Chest XR Xray Interpretation: No Acute Changes - IMPRESSION: No active cardiopulmonary disease. Dr. Bridges has reviewed this report. Radiology Interpretation Completed By: Radiologist - CT Abdomen/Pelvis CT CT Interpretation: Positive (See Comments) - IMPRESSION: Complex fluid collection in the pelvis measuring approximately 7.1 x 5.6 x 8.2 cm in the hysterectomy bed consistent with an abscess. Adjacent inflammatory changes are noted. Dr. Bridges has reviewed this report. CT Interpretation Completed By: Radiologist - EKG 14:28 Cardiac Rate: Tachycardia - 126 bpm EKG Rhythm: Sinus Tachycardia EKG Interpretation: No ST elevations. Abdominal Pain Fem Course/Dx - Course Course Of Treatment: This pt is a 53 y/o female presenting to [facility] c/o lower abdominal pain s/p hysterectomy 1 week ago. Pt states she had a vaginal hysterectomy with Dr. Fong in [place] for pre-uterine CA, fallopian tubes were also removed but not ovaries. She reports that since then pt has been having lower abdominal pain. She states rectal spasm began a couple of days ago for the last couple of days, which make it difficult for her to have a bowel movement. Pt denies any fever until today, she is noted to have a temp of 102.9 F here in the ED. Additionally reports nausea. Denies urinary symptoms, vaginal bleeding, chest pain, SOB. Blood test results shows a wbc's of 13.2, slight anemia with a hemoglobin of 10 and hematocrit of 31, fibrinogen 905, anion gap of 12, troponin of 0.06, CRP of 298, urinalysis is contaminated. Initially as the patient came in there was a sepsis alert therefore the patient was given IV fluids with 30 CC's per kg, she was given vancomycin and cefepime as a broad- spectrum antibiotic. Abdominal pelvic CT impression: Complex fluid collection in the pelvis measuring approximately 7.15.68.2 cm in the hysterectomy bed consistent with an abscess. At this time I discussed my physical exam and findings with Dr. Solorio from [facility] who recommends admission to the hospitalist and he will consult for the patient. Therefore, I discussed my physical exam and findings with Dr. Cook from the hospitalist services who accepted the patient for admission. Patient is hemodynamically stable, alert and oriented 3. - Diagnoses Provider Diagnoses: Pelvic abscess - Provider Notifications Discussed Care Of Patient With: August Solorio Time Discussed With Above Provider: 16:26 Instructed by Provider To: Other - I discussed with Dr. Solorio, [facility], who recommends to admit pt to hospitalist. [16:30] I discussed the case with Dr. Cook, hospitalist, who accepted the pt for admission. Discharge - Sign-Out/Discharge Documenting (check all that apply): Patient Departure - Admit to [facility] All imaging exams completed and their final reports reviewed: Yes - Discharge Plan Condition: Stable Disposition: ADMITTED TO [facility] - Billing Disposition and Condition Condition: STABLE Disposition: Admitted to [facility] - Attestation Statements Document Initiated by Scribe: Yes Documenting Scribe: Avis Allen Provider For Whom Scribe is Documenting (Include Credential): Gilbert Bridges MD Scribe Attestation: IAvis, scribed for Gilbert Bridges MD on 09/03/18 at 0744. Scribe Documentation Reviewed: Yes Provider Attestation: The documentation as recorded by the Avis tolbert accurately reflects the service I personally performed and the decisions made by me, Gilbert Bridges MD
[2018-09-02 15:00] LABS: ABS Basophils 0 10^3/ul (0-0.2); ABS Eosinophils 0.1 10^3/ul (0-0.6); ABS Lymphocytes 0.7 10^3/ul (1.0-4.8); ABS Monocytes 0.9 10^3/ul (0-0.8); ABS Neutrophils 11.4 10^3/ul (1.5-7.7); ABS Nucleated RBC 0 10^3/ul; Eosinophil % 0.9 % (0-6); Hematocrit 31 % (35-47); Lymphocyte % 5.6 % (25-47); Mean Corpuscular HGB Conc 32 g/dl (31-36); Mean Corpuscular Hemoglobin 26 pg (27-31); Mean Corpuscular Volume 82 fL (80-97); Mean Platelet Volume 7.2 um3 (7.4-10.4); Nucleated Red Blood Cells % 0; Platelet Count 377 10^3/ul (150-450); Red Blood Count 3.81 10^6/ul (4.00-5.40); Red Cell Distribution Width 15 % (10.5-15); White Blood Count 13.2 10^3/ul (3.5-10.8)
[2018-09-02 15:09] LABS: INR 1.31 (0.77-1.02)
[2018-09-02 15:19] LABS: EGFR Non-African American 82.1 (>60)
[2018-09-02 15:26] LABS: Urine Appearance Cloudy; Urine Blood 1+ (Negative); Urine Color Yellow; Urine Ketones Trace (Negative); Urine Protein 2+(100 mg/dL) (Negative); Urine Red Blood Cell 2+(6-10/hpf) (Absent); Urine Specific Gravity 1.019 (1.010-1.030); Urine Urobilinogen Positive (Negative); Urine White Blood Cell 3+(>20/hpf) (Absent)
[2018-09-02] MEDS ORDERED: Iohexol 300* (CONTRAST) 10 ML SDV IV ONE (15:26)
[2018-09-02] MEDS ORDERED: Morphine INJ* 4 MG/ML 1 ML SYRINGE (NEW SYRINGE VERSION) ONE (15:29)
[2018-09-02] MEDS ORDERED: Morphine VIAL* 10 MG/ML 1 ML VIAL IV ONE (15:37)
--- NOTE | 2018-09-02 15:37 | RAD ---
HISTORY: sepsis workup COMPARISONS: None VIEWS: 1: frontal AP view of the chest at 2:47 PM FINDINGS: LINES AND TUBES: None. CARDIOMEDIASTINAL SILHOUETTE: The cardiomediastinal silhouette is normal for portable technique. PLEURA: The costophrenic angles are sharp. No pleural abnormalities are noted. LUNG PARENCHYMA: The lungs are clear. ABDOMEN: The upper abdomen is clear. There is no subphrenic gas. BONES AND SOFT TISSUES: No bone or soft tissue abnormalities are noted. IMPRESSION: NO ACTIVE CARDIOPULMONARY DISEASE.
--- NOTE | 2018-09-02 16:16 | RAD ---
Indication: Abdominal pain and fever. Contrast: Administered 100.1 ml of OMNIPAQUE 300 mg/ml CT of the abdomen and pelvis was performed after IV contrast administration. No oral contrast was administered. Sagittal and coronal reconstructed images were obtained. The lung bases demonstrate no pleural fluid, nodules or masses. Heart is of normal size without evidence of pericardial effusion. The liver is normal in size. No focal lesions or intrahepatic duct dilatation is noted. The spleen is normal in size. The pancreas demonstrates no mass effect or ductal dilatation. The common duct is not dilated. The gallbladder demonstrates no calcified gallstones. No pericholecystic fluid or wall thickening is noted. No adrenal masses are noted. The kidneys demonstrate symmetric nephrograms without focal lesions. Aorta and inferior vena cava are unremarkable. CT of the pelvis demonstrated a multiloculated fluid collection in the hysterectomy bed. This measures approximately 7.1 cm in length x 5.6 cm in AP dimension x 8.2 cm in width. Multiple foci of air with fluid air level is noted. This is consistent with a postoperative abscess. No oral contrast was given. This appears to be just adjacent to bowel. IMPRESSION: Complex fluid collection in the pelvis measuring approximately 7.1 x 5.6 x 8.2 cm in the hysterectomy bed consistent with a abscess. Adjacent inflammatory changes are noted.
[2018-09-02] MEDS ORDERED: Acetaminophen TAB* 325 MG PO PRN (17:01)
[2018-09-02] MEDS ORDERED: hydrOXYzine HCL TAB* 25 MG PO PRN (17:14)
[2018-09-02] MEDS ORDERED: Ibuprofen TAB* 800 MG PO PRN (17:14)
[2018-09-02] MEDS ORDERED: Morphine VIAL* 4 MG/ML VIAL (1 ml vial) IV PRN (17:14)
[2018-09-02] MEDS ORDERED: ALPRAZolam TAB* 0.25 MG PO PRN (17:14)
[2018-09-02] MEDS ORDERED: NS 0.9% 1000 ML* 1,000 ML IV SCH (17:15)
[2018-09-02] MEDS ORDERED: Vancomycin per Pharmacy* NOTE FOLLOW UP SCH (18:00)
[2018-09-02] MEDS: Enoxaparin(*) 40 MG/0.4 ML SYR SUBCUT SCH (19:36)
--- NOTE | 2018-09-02 21:17 | HP ---
ADDENDUM NOW INCLUDED ON THIS REPORT CC: True Atwood NP; Dr. August Solorio * HISTORY AND PHYSICAL: DATE OF ADMISSION: 09/02/18 TIME OF ADMISSION: 5:30 p.m. CHIEF COMPLAINT: Fevers and abdominal pain. HISTORY OF PRESENT ILLNESS: This is a 53-year-old female with history of hyperlipidemia, who presents today 8 days postop from a vaginal hysterectomy, which was done by Dr. Fong. Ms. Demarco was recovering at home where she reports she had been having some abdominal cramping over the past 8 days, but then today she started to develop chills and subjective fevers and the pelvic pain got much worse today. She has been managing her pain with Tylenol and occasionally Percocet, but today the pain became unbearable, so she came to the emergency department. She also noted some vaginal spotting that just began this evening. Otherwise, she feels okay and has no other complaints. In the emergency department, she was found to be septic and a CT abdomen and pelvis showed an abscess in the pelvis measuring 7.1 x 5.6 x 8.2 cm in the hysterectomy bed with adjacent inflammatory changes. She has received vancomycin, cefepime, and 3 L of IV fluids so far and we were asked to evaluate for admission. Dr. Solorio has already seen the patient and is planning to take her to the operative room. PAST MEDICAL HISTORY: Hyperlipidemia. Of note, she had also been having chest pain prior to the hysterectomy, so she had an extensive cardiac workup with Dr. Nielsen including a stress test and an echocardiogram last month, which were all normal. She has had no chest pain recently. The reason for the hysterectomy was vaginal bleeding and concern for precancerous cells on a D and C. She has not yet received the pathology results from her hysterectomy. PAST SURGICAL HISTORY: Hysterectomy and arthroscopy of her shoulder. ALLERGIES: PENICILLIN to which she gets swelling and a rash. Her mom is here and reports she has not had PENICILLIN since she was a child. FAMILY HISTORY: Positive for diabetes and heart disease. SOCIAL HISTORY: She is a former smoker. She quit 20 years ago. She occasionally uses alcohol, but not regularly. She uses no illicit drugs. 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 REVIEW OF SYSTEMS: As per the HPI, remainder of the 14-point review of systems is negative including negative for urinary symptoms, constipation, diarrhea, headaches, chest pain, or shortness of breath. PHYSICAL EXAMINATION GENERAL: Alert, well-appearing female, in no distress. She is mildly uncomfortable, but nontoxic appearing. VITAL SIGNS: Temperature currently is 100.6, on presentation, it was 102.9, heart rate is 117; respiratory rate is 18; pulse ox is 98% on room air; blood pressure is 108/79. HEENT: Pupils are 4 mm bilaterally and reactive to light. She has no nystagmus. Oral mucosa is moist. NECK: No cervical adenopathy. No JVD. CHEST: She is tachycardic with no murmurs. Her PMI is nondisplaced. LUNGS: Her clear bilaterally. ABDOMEN: Soft and mildly tender to deep palpation in the pelvis, but no guarding or rebound. No CVA tenderness is noticed. EXTREMITIES: No edema, no rashes, no ulcers. DIAGNOSTIC STUDIES/LAB DATA: White blood cells 13.2, hemoglobin 10.0, platelets 377. She has 86% neutrophils. ESR is 120. Fibrinogen is 905. Sodium 135, potassium 3.5, creatinine 0.74, glucose 112, lactic acid 1.2. Troponin 0.06. Abdomen and pelvis CT, complex fluid collection in the pelvis measuring approximately 7.1 x 5.6 x 8.2 cm in the hysterectomy bed consistent with abscess , adjacent inflammatory changes are noted. ASSESSMENT AND PLAN: This is a 53-year-old woman with recent history of vaginal bleeding and concern for uterine cancer, who underwent a hysterectomy 8 days ago at an outside hospital, who presents today with 1 day of fevers and worsening abdominal pain and is found to have sepsis. 1. Sepsis with an abdominal source. A pelvic abscess was found on CT. She has received 30 cc/kg of IV fluids already; however, she remains tachycardiac, so I am giving her another liter of bolus. She has no evidence of end-organ damage at this time. I am continuing her on vancomycin and cefepime and she needs ICU level of monitoring. I have discussed the case with Dr. Solorio and he plans to take her to the operating room for surgical debridement. At this point, she does not need any hemodynamic support. Blood cultures have been sent in the emergency department and she has received vancomycin and cefepime. I think this is a reasonable antibiotic regimen to continue. I will control her pain with morphine. Keep her n.p.o. for now and postoperatively her diet can be advanced. Fibrinogen level was elevated and her platelets are normal thereby ruling out disseminated intravascular coagulation. 2. Hyperlipidemia. Continue home atorvastatin. 3. Healthcare proxy. She names her , Favian, and her mother, Toña, as the people to contact. Favian's phone number is [phone] and Toña's phone number is [phone]. 4. DVT prophylaxis. Lovenox. 5. Diet. N.p.o. until she returns from the OR. ADDENDUM: Elevated troponin. I suspect this is related to demand in the setting of sepsis. I will trend her troponins. Her EKG is not ischemic and she recently had an extensive cardiac workup. She has no chest pain or shortness of breath. [id number]/CPS #: [id number]/CPS #: [id number] CHRISTINA
[2018-09-02] MEDS ORDERED: fentaNYL* 50 MCG/ML 2 ML VIAL (100 MCG VIAL) ONE ×2 (21:19→21:31)
[2018-09-02] MEDS ORDERED: Midazolam* 1 MG/ML 5 ML VIAL (5 MG) ONE (21:19)
--- NOTE | 2018-09-02 21:25 | HP ---
HISTORY AND PHYSICAL: ADDENDUM: Elevated troponin. I suspect this is related to demand in the setting of sepsis. I will trend her troponins. Her EKG is not ischemic and she recently had an extensive cardiac workup. She has no chest pain or shortness of breath. [id number]/[facility] #: [id number] MTDD
[2018-09-02] MEDS ORDERED: Propofol* 10 MG/ML 20 ML BTL IV PUSH ONE (21:36)
[2018-09-02] MEDS ORDERED: DiMENhydriNATE IV* 50 MG/ML VIAL ONE (21:36)
[2018-09-02] MEDS ORDERED: Dexamethasone IV* 4 MG/ML 1 ML (4 MG) ONE (21:36)
[2018-09-02] MEDS ORDERED: Ketorolac INJ* 30 MG/ML 1 ML VIAL ONE (21:36)
[2018-09-02] MEDS ORDERED: Ondansetron INJ* 2 MG/ML VIAL ONE (21:36)
[2018-09-02] MEDS: Atorvastatin* 10 MG TAB PO SCH (22:49)
[2018-09-02] MEDS ORDERED: oxyCODONE/Acetamin 5/325 MG* TAB PO PRN (23:08)
[2018-09-02] MEDS: Ibuprofen TAB* 600 MG PO SCH (23:59)
[2018-09-03] MEDS: Vancomycin(*) 1,000 MG in NS 0.9% 250 ML* 250 ML IVPB SCH ×4 (00:41→21:04)
[2018-09-03] MEDS: Cefepime 1 GM in Dextrose(*) 1 GM/50 ML BAG IV SCH ×2 (04:45→17:40)
[2018-09-03] MEDS: Ibuprofen TAB* 600 MG PO SCH ×4 (05:33→22:14)
[2018-09-03 06:18] LABS: ABS Basophils 0 10^3/ul (0-0.2); ABS Eosinophils 0 10^3/ul (0-0.6); ABS Lymphocytes 0.6 10^3/ul (1.0-4.8); ABS Monocytes 0.3 10^3/ul (0-0.8); ABS Neutrophils 8.9 10^3/ul (1.5-7.7); ABS Nucleated RBC 0 10^3/ul; Eosinophil % 0 % (0-6); Hematocrit 29 % (35-47); Hemoglobin 9.6 g/dl (12.0-16.0); Lymphocyte % 5.7 % (25-47); Mean Corpuscular HGB Conc 33 g/dl (31-36); Mean Corpuscular Hemoglobin 27 pg (27-31); Mean Corpuscular Volume 82 fL (80-97); Mean Platelet Volume 7.6 um3 (7.4-10.4); Nucleated Red Blood Cells % 0; Platelet Count 263 10^3/ul (150-450); Red Blood Count 3.61 10^6/ul (4.00-5.40); Red Cell Distribution Width 15 % (10.5-15); White Blood Count 9.8 10^3/ul (3.5-10.8)
[2018-09-03 06:22] LABS: EGFR Non-African American 93.7 (>60)
[2018-09-03 06:26] LABS: INR 1.44 (0.77-1.02)
--- NOTE | 2018-09-03 08:31 | PN ---
Subjective Date of Service: 09/03/18 Interval History: Feels great this morning, had an uneventful night after returning to ICU from the OR around 11pm. She has no pain. No vaginal drainage. 50cc pus drained in OR. Afebrile since returning from the OR. Objective Active Medications: Acetaminophen (Tylenol Tab*) 650 mg PO Q4H PRN PRN Reason: FEVER/PAIN Alprazolam (Xanax Tab*) 0.25 mg PO ONCE PRN PRN Reason: ANXIETY Atorvastatin Calcium (Lipitor*) 10 mg PO BEDTIME [facility] Last Admin: 09/02/18 22:49 Dose: 10 mg Enoxaparin Sodium (Lovenox(*)) 40 mg SUBCUT Q24H [facility] Last Admin: 09/02/18 19:36 Dose: 40 mg Hydroxyzine HCl (Atarax Tab*) 25 mg PO Q6HR PRN PRN Reason: .ITCHING Cefepime HCl (Maxipime 1 Gm In Dextrose Duplex (*)) 1 gm in 50 mls @ 100 mls/ hr IV Q12H [facility] Last Admin: 09/03/18 04:45 Dose: 100 mls/hr Lactated Ringer's (Lactated Ringers 1000 Ml Bag*) 1,000 mls @ 1,000 mls/hr IV .BOLUS [facility] Last Admin: 09/02/18 19:36 Dose: 1,000 mls/hr Vancomycin HCl 1,000 mg/ (Sodium Chloride) 250 mls @ 166.667 mls/hr IVPB Q8H [facility] Last Admin: 09/03/18 00:41 Dose: 166.667 mls/hr Lactated Ringer's (Lactated Ringers 1000 Ml Bag*) 1,000 mls @ 125 mls/hr IV PER RATE [facility] Last Admin: 09/03/18 07:35 Dose: 125 mls/hr Ibuprofen (Motrin Tab*) 600 mg PO Q6H [facility] Last Admin: 09/03/18 05:33 Dose: 600 mg Morphine Sulfate (Morphine Vial*) 4 mg IV Q4H PRN PRN Reason: PAIN Oxycodone/Acetaminophen (Percocet 5/325 Tab*) 2 tab PO Q4H PRN PRN Reason: PAIN Pharmacy Consult (Vancomycin Per Pharmacy*) 1 note FOLLOW UP .VANC PER PHARMACY [facility] Pharmacy Profile Note (Vancomycin Trough Check) 1 note FOLLOW UP 1700 ONE Stop: 09/03/18 17:01 Vital Signs - 8 hr 09/03/18 09/03/18 09/03/18 00:30 01:00 01:30 Temperature Pulse Rate 75 73 72 Respiratory 25 24 25 Rate Blood Pressure 91/57 110/62 91/61 (mmHg) O2 Sat by Pulse 92 94 94 Oximetry 09/03/18 09/03/18 09/03/18 02:00 02:29 02:30 Temperature Pulse Rate 70 75 Respiratory 24 24 26 Rate Blood Pressure 92/55 86/64 (mmHg) O2 Sat by Pulse 94 94 Oximetry 09/03/18 09/03/18 09/03/18 03:00 03:30 04:00 Temperature 98 F Pulse Rate 62 63 60 Respiratory 23 24 23 Rate Blood Pressure 94/60 90/58 85/58 (mmHg) O2 Sat by Pulse 93 92 93 Oximetry 09/03/18 09/03/18 09/03/18 04:30 05:00 05:30 Temperature Pulse Rate 61 59 61 Respiratory 28 23 21 Rate Blood Pressure 92/52 91/55 (mmHg) O2 Sat by Pulse 91 91 91 Oximetry 09/03/18 09/03/18 09/03/18 06:00 06:30 07:00 Temperature Pulse Rate 57 56 61 Respiratory 21 23 18 Rate Blood Pressure 89/55 92/57 81/62 (mmHg) O2 Sat by Pulse 93 93 93 Oximetry 09/03/18 07:52 Temperature 97.7 F Pulse Rate Respiratory Rate Blood Pressure (mmHg) O2 Sat by Pulse Oximetry Oxygen Devices in Use Now: None Appearance: alert, well appearing, ambulating in room Eyes: No Scleral Icterus Ears/Nose/Mouth/Throat: NL Teeth, Lips, Gums Neck: NL Appearance and Movements; NL JVP Respiratory: Symmetrical Chest Expansion and Respiratory Effort, Clear to Auscultation Cardiovascular: NL Sounds; No Murmurs; No JVD, RRR Abdominal: NL Sounds; No Tenderness; No Distention Lymphatic: No Cervical Adenopathy Extremities: No Edema Skin: No Rash or Ulcers Result Diagrams: 09/03/18 05:40 09/03/18 05:40 Microbiology and Other Data: Microbiology 09/02/18 21:30 Skin and Soft Tissue MRSA/MSSA (PCR - Final Wound - Vaginal Mrsa Negative S.aureus Negative Gram Stain - Final 09/02/18 18:30 Nasal Screen MRSA (PCR) - Final Nasal Mrsa Not Detected Assess/Plan/Problems-Billing Assessment: 53 year old female POD #9 from vaginal hysterectomy admitted 09/02 with a pelvic abscess, now POD #1 from I&D/washout. - Patient Problems (1) Sepsis Current Visit: Yes Status: Acute Comment: resolved present on admission with fever, leukocytosis, tachycardia and clear source received adequate volume resuscitation hemodynamically stable transfer to floor today (2) Pelvic abscess Current Visit: Yes Status: Acute Code(s): [id number] - SNOMED Code(s): 467571593 Comment: POD #1 from I&D/washout cultures from OR are pending responding well to vanc/cefepime (3) Status post hysterectomy Current Visit: Yes Status: Acute Code(s): Z90.710 - ACQUIRED ABSENCE OF BOTH CERVIX AND UTERUS SNOMED Code(s): 104320726 Comment: pathology needs to be followed up--indication was postmenopausal bleeding
--- NOTE | 2018-09-03 12:26 | PN ---
Progress Note - Progress Note Date of Service: 09/03/18 Note: S: Pt says she feels much better today. No fever/chills. Good appetite - ventura reg diet w/out n/v this am. Had a very small BM this am as well. Pain controlled on Ibuprofen only. Denies significant vaginal drainage. Afebrile since surgery last evening. BP 99/60. Other vitals stable Exam Gen: NAD Abd: soft, ND, mildly tender to deep suprapubic palpation Ext: No edema, no calf pain. Labs: WBC now normal today. A: POD#9 s/p Lap Hyst with Dr. Fong, POD#1 s/p exploration of vaginal cuff and drainage of pelvic abscess with Dr. Solorio. Doing much better. Was septic on admission but is now doing fine with no concerns. +bowel functioning P: Will plan for hep lock when BP >100/60 Encourage ambulation Regular diet Cont Vanco and Cefepime until culture results return. Anticipate D/C sat am, when afebrile for 48hrs (possible fri evening if cultures come back)
--- NOTE | 2018-09-03 15:45 | OP ---
OPERATIVE REPORT: DATE OF OPERATION: 09/02/18 - Inpatient, room [place] [id number] DATE OF : [id number] SURGEON: August Solorio M.D. ANESTHESIOLOGIST: Anuja Elkins M.D. ANESTHESIA: General endotracheal tube. PRE-OP DIAGNOSIS: Pelvic abscess, status post hysterectomy. POST-OP DIAGNOSIS: Pelvic abscess, status post hysterectomy. OPERATIVE PROCEDURE: Exploration on the vaginal cuff and drainage of abscess. ESTIMATED BLOOD LOSS: Minimal. FINDINGS: On exam under anesthesia, the cuff was found to be protruding slightly. Upon opening of the cuff, 50 mL of purulent fluid was obtained. DESCRIPTION OF PROCEDURE: The patient identified, procedure identified as an exam under anesthesia, exploration of the cuff and drainage of abscess. The patient was taken to the operating room, prepped and draped in the usual fashion in the dorsal lithotomy position under general anesthesia. A sound was used to initially probe the vaginal cuff with ease of penetration. The cultures were obtained once the cuff had been penetrated. The cuff area was then dilated up to a #30 Cristhian dilator and the uterine dressing forceps were used to open the cuff further with drainage of large amounts of purulent material. A Donnelly was placed into the cuff and some saline irrigation, which utilized and sucked back out. An attempt was made to place a Dawson drain, but this was not successful as Dawson drain continued to come back out with the uterine dressing forceps. All instruments were removed from the vagina and all sponge and instruments counts were correct, and the patient returned to the recovery room in stable condition. [id number]/[facility] #: [id number] [facility]
[2018-09-03] MEDS ORDERED: Vancomycin Trough Check NOTE FOLLOW UP ONE (17:00)
[2018-09-03] MEDS: Docusate CAP* 100 MG PO PRN (18:35)
[2018-09-03] MEDS: Enoxaparin(*) 40 MG/0.4 ML SYR SUBCUT SCH (18:35)
[2018-09-03] MEDS: Atorvastatin* 10 MG TAB PO SCH (21:37)
[2018-09-03] MEDS ORDERED: Calcium Carbonate CHEW TAB* 500 MG (TUMS) PO ONE (21:50)
[2018-09-04] MEDS: Cefepime 1 GM in Dextrose(*) 1 GM/50 ML BAG IV SCH ×2 (03:57→16:41)
[2018-09-04] MEDS: Ibuprofen TAB* 600 MG PO SCH ×4 (04:40→22:00)
[2018-09-04] MEDS: Docusate CAP* 100 MG PO PRN ×2 (04:48→17:58)
[2018-09-04] MEDS: Vancomycin(*) 1,000 MG in NS 0.9% 250 ML* 250 ML IVPB SCH ×3 (04:48→21:27)
[2018-09-04] MEDS ORDERED: Bisacodyl SUPP* 10 MG SUPP PR ONE (11:34)
--- NOTE | 2018-09-04 12:16 | PN ---
Progress Note - Progress Note Date of Service: 09/04/18 SOAP: Subjective: [Patient is post op day 2 from drainage of post hysterectomy vaginal cuff abscess on 09/02/18. She has no complaints, denies fever, chills, malaise, nausea/vomiting, CP or SOB. She does admit to feeling constipated. Denies vaginal bleeding or discharge.] Objective: [ Vital Signs 09/03/18 09/03/18 09/03/18 12:32 16:21 19:45 Temperature 98.9 F 97.9 F 98.5 F Pulse Rate 63 60 76 Respiratory 16 22 20 Rate Blood Pressure 109/56 103/49 117/59 (mmHg) O2 Sat by Pulse 98 99 98 Oximetry 09/03/18 09/04/18 09/04/18 20:20 00:24 03:29 Temperature 98.4 F 98.6 F Pulse Rate 53 59 Respiratory 20 18 18 Rate Blood Pressure 103/49 113/50 (mmHg) O2 Sat by Pulse 97 95 Oximetry 09/04/18 09/04/18 07:47 08:28 Temperature 98.4 F Pulse Rate 68 Respiratory 16 16 Rate Blood Pressure 94/55 (mmHg) O2 Sat by Pulse 93 Oximetry Tmax 101 0n 09/02/18 at 1931 WBC 09/02/18 09/03/18 14:45 05:40 WBC 13.2 10^3/ul H 10^3/ul 9.8 10^3/ul 10^3/ul (3.5-10.8) (3.5-10.8) Microbiology 09/02/18 21:30 Anaerobic Culture - Preliminary Wound - Vaginal Skin and Soft Tissue MRSA/MSSA (PCR - Final Mrsa Negative S.aureus Negative Gram Stain - Final Wound Culture - Preliminary Escherichia Coli 09/02/18 15:17 Urine Culture - Final Urine Enterococcus Faecalis Escherichia Coli 09/02/18 15:21 Aerobic Blood Culture - Preliminary Blood Venous No Growth Day 1 Anaerobic Blood Culture - Preliminary No Growth Day 1 09/02/18 14:45 Aerobic Blood Culture - Preliminary Blood Venous No Growth Day 1 Anaerobic Blood Culture - Preliminary No Growth Day 1 Lungs CTA b/l CV RRR Abdomen soft, nt, no cva tenderness b/l, NABS, not distended. Pelvic deferred Acetaminophen (Tylenol Tab*) 650 mg PO Q4H PRN PRN Reason: FEVER/PAIN Alprazolam (Xanax Tab*) 0.25 mg PO ONCE PRN PRN Reason: ANXIETY Atorvastatin Calcium (Lipitor*) 10 mg PO BEDTIME [facility] Last Admin: 09/03/18 21:37 Dose: 10 mg Docusate Sodium (Colace Cap*) 100 mg PO TID PRN PRN Reason: CONSTIPATION Last Admin: 09/04/18 04:48 Dose: 100 mg Enoxaparin Sodium (Lovenox(*)) 40 mg SUBCUT Q24H [facility] Last Admin: 09/03/18 18:35 Dose: 40 mg Hydroxyzine HCl (Atarax Tab*) 25 mg PO Q6HR PRN PRN Reason: .ITCHING Cefepime HCl (Maxipime 1 Gm In Dextrose Duplex (*)) 1 gm in 50 mls @ 100 mls/ hr IV Q12H [facility] Last Admin: 09/04/18 03:57 Dose: 100 mls/hr Vancomycin HCl 1,000 mg/ (Sodium Chloride) 250 mls @ 166.667 mls/hr IVPB Q8H [facility] Last Admin: 09/04/18 04:48 Dose: 166.667 mls/hr Ibuprofen (Motrin Tab*) 600 mg PO Q6H [facility] Last Admin: 09/04/18 04:40 Dose: Not Given Morphine Sulfate (Morphine Vial*) 4 mg IV Q4H PRN PRN Reason: PAIN Oxycodone/Acetaminophen (Percocet 5/325 Tab*) 2 tab PO Q4H PRN PRN Reason: PAIN Pharmacy Consult (Vancomycin Per Pharmacy*) 1 note FOLLOW UP .VANC PER PHARMACY [facility] ] Assessment: [Patient has responded well to surgical drainage of abscess and IV antibiotics, she will be 48 hrs post drainage and without fever at 10pm tonite. Her Blood cultures and WBC are negative so far, wound culture and Urine culture both + for E-coli, antibiotic sensitivities available for Urine culture. please note patient is Allergic to Penicillin when choosing discharge antibiotic regimen.] Plan: [Continue current care and IV antibiotics, Plan for discharge in am of 09/05/18 if all is well on an oral antibiotic regimen to complete a 14 day course of therapy.]
[2018-09-04] MEDS: Enoxaparin(*) 40 MG/0.4 ML SYR SUBCUT SCH (17:57)
[2018-09-04] MEDS: Atorvastatin* 10 MG TAB PO SCH (21:26)
[2018-09-05] MEDS: Cefepime 1 GM in Dextrose(*) 1 GM/50 ML BAG IV SCH (04:08)
[2018-09-05] MEDS: Ibuprofen TAB* 600 MG PO SCH ×3 (04:15→13:41)
[2018-09-05] MEDS: Vancomycin(*) 1,000 MG in NS 0.9% 250 ML* 250 ML IVPB SCH (04:51)
[2018-09-05 11:38] VITALS: BP 108/62
[2018-09-05] MEDS ORDERED: Vancomycin(*) 1,250 MG in NS 0.9% 250 ML* 250 ML IVPB SCH (14:00)
--- NOTE | 2018-09-05 23:42 | DS ---
CC: Dr. Alma Delia Fong DISCHARGE SUMMARY: DATE OF ADMISSION: 09/02/18 DATE OF DISCHARGE: 09/05/18 HOSPITAL COURSE: This patient is a 53-year-old woman, who was 1 week status post a total laparoscopic hysterectomy by Dr. Fong in [place]. The patient reported to the emergency department here complaining of increasing lower abdominal pain and some rectal spasm and new onset of fever. Temperature in the emergency department was 102.9. CT was notable for a 7.1 x 5.6 x 8.2 cm complex fluid collection in the pelvis consistent with a pelvic abscess. The patient then underwent an abscess drainage, which was performed vaginally by Dr. Solorio. This was productive of at least 50 cc of purulent fluid. The patient was also started on antibiotics. The patient had a maximum temperature of 103.3 on the night of admission. The patient was then transferred to the postoperative lock for recovery. The patient's postoperative course was unremarkable. The patient received IV vancomycin and cefepime for antibiotic coverage. The wound culture returned with E. coli and some anaerobic bacteria. Urine returned with E. coli and enterococcus. On postoperative day 2, the patient was ambulating, tolerating a regular diet, voiding spontaneously, and having only mild abdominal pain. She was also afebrile for over 48 hours at that point. The patient was then discharged to home in good condition on postoperative day 3. DISCHARGE PHYSICAL EXAMINATION: Vital Signs: 98.7 temperature, heart rate 73, blood pressure 108/62. General: The patient is in no acute distress, very comfortable and good historian. Abdomen: Soft, minimal tenderness to palpation. Four laparoscopic incisions appear to be healing normally with no evidence of erythema or induration. LABORATORY INFORMATION: On admission, white blood cell count of 13.2, which decreased to 9.8 on postoperative day 1, hemoglobin 9.6, hematocrit 29. DISCHARGE MEDICATIONS: Please see medication reconciliation for the full list. Dr. Ortiz from infectious disease was contacted for oral antibiotic recommendation. The patient will continue on oral moxifloxacin 400 mg daily for 11 days. DISCHARGE INSTRUCTIONS: The patient is to contact Dr. Fong's office on Friday to arrange followup. She is also welcome to return to [facility] if she has further questions or desires to follow up with us. The patient was instructed to call or return if she has return of fevers or chills or worsening abdominal pain. DISCHARGE DIAGNOSIS: Post hysterectomy pelvic abscess, status post vaginal abscess drainage and IV antibiotics. [id number]/[facility] #: [id number] [facility]
[2018-09-06] MEDS ORDERED: Vancomycin Trough Check NOTE FOLLOW UP ONE (13:30)
== END 2018-09-05 13:45 | disposition home or self-care (01) | DRG 711 ==
LOC: ED 14:03 → ICU 17:01 → SSU 09-03 11:53
PROVIDERS: ADMIT Internal Medicine; ATTEND Obstetrics & Gynecology
PROC: 0W9J0ZZ Drainage of Pelvic Cavity, Open Approach (ICD-10-PCS; principal; 2018-09-02 19:00)
DX: T81.49XA Infection following a procedure, other surgical site, initial encounter (principal); A41.9 Sepsis, unspecified organism; N73.9 Female pelvic inflammatory disease, unspecified; E78.5 Hyperlipidemia, unspecified; R74.8 Abnormal levels of other serum enzymes; K59.00 Constipation, unspecified; K21.9 Gastro-esophageal reflux disease without esophagitis; B96.20 Unspecified Escherichia coli [E. coli] as the cause of diseases classified elsewhere; Z72.89 Other problems related to lifestyle; Z88.0 Allergy status to penicillin; Z88.1 Allergy status to other antibiotic agents; Z90.710 Acquired absence of both cervix and uterus; Z82.49 Family history of ischemic heart disease and other diseases of the circulatory system; Z83.3 Family history of diabetes mellitus; Z87.891 Personal history of nicotine dependence
CPT/HCPCS: 36415; 71045; 74177; 80048; 80053; 80202; 81003; 81015; 83605; 84145; 84484; 85025; 85384; 85610; 85652; 85730; 86140; 87040; 87070; 87073; 87076; 87077; 87086; 87185; 87186; 87205; 87640; 87641; 93005; 99285; A9270-GY; J0692; J1100; J1240; J1650; J1885; J2250; J2270; J2405; J2704; J3010; J3370; Q9967